=== PATIENT | female | born 1970 | race Caucasian/White ===

== ENCOUNTER 2024-10-02 22:14 | Inpatient (IN) ==
[2024-10-03] MEDS ORDERED: MELATONIN 3 MG TAB PO PRN (02:24)
[2024-10-03] MEDS ORDERED: ONDANSETRON INJ 2 MG/ML 2 ML VIAL IV PRN ×3 (02:24→12:33)
[2024-10-03] MEDS ORDERED: POLYETHYLENE (MIRALAX) 17 GM PACK PO PRN (02:24)
--- NOTE | 2024-10-03 02:31 | History & Physical Report ---
Date of Service October 03, 2024 Assessment & Plan (1) HTN (hypertension): (2) Lumbar pain with radiation down both legs: (3) Costochondritis, acute: (4) Ureteropelvic junction calculus: Plan Chata is a 53-year-old female with past medical history of hypertension, history of cholecystectomy, and lumbar pain with occasional radiation to lower extremities with history of lumbar laminectomy who was transferred from [facility] due to right UPJ calculus and concern for right forniceal rupture with urine leak. (R) UPJ calculus - Right flank pain and 0.5 cm stone in (R) UPJ w/ associated hydroureteronephrosis - Disc with imaging done in ED given to radiology and available in [facility] - Currently pain is well controlled since she got dose of Dilaudid when in ED Could consider dilaudid or morphine for pain control given hx of allergies to percocet, oxycodone, and tramadol - Given one dose of Zosyn in ED, will continue - Will consult urology for possible procedure tomorrow, will appreciate recommendations. Patient currently NPO - Monitor renal function in am labs Chest pain - Central chest pain that radiated to her back - EKG and troponin x1 unremarkable in [facility] - Currently has persistent but more dull central chest pain - Exam and history suggestive of costochondritis - Will get repeat troponin for completeness given initial pain and no repeat was drawn in ED - Does not feel she needs pain medication now, but could consider NSAIDs as management HTN - Continue Lisinopril and Metoprolol Chronic lumbar pain - Continue Gabapentin, Cymbalta, Effexor Dispo: Admit to Med/Surg Fluids: s/p 1L NSS bolus x2 Diet: NPO for possible procedure tomorrow Pain Control: none ordered; could consider dilaudid or morphine; patient allergic to Percocet, Oxycodone, Tramadol VTE ppx: SCD Code Status: FULL CODE Admission and Anticipated Discharge Date Admission Date: October 03, 2024 History of Present Illness Chief Complaint: Right flank pain Primary Care Provider: Roselia Ballesteros MD Chata is a 53-year-old female with past medical history of hypertension, history of cholecystectomy, and lumbar pain with occasional radiation to lower extremities with history of lumbar laminectomy who was transferred from [facility] due to right UPJ calculus and concern for right forniceal rupture with urine leak. Patient presented to [facility] ED after experiencing central chest pain that radiated to her back and down her left arm, had a 10/10 in intensity, and was associated to N/V and diaphoresis. On arrival to ED, EKG was done and unremarkable and troponins were negative x 1. After short while, patient started developing right flank pain that was more noticeable than the chest pain that she had arrived to the ED for. Patient does have history of cholecystectomy. CT done in [facility] did report a right UPJ stone measuring 0.5 cm with associated right hydroureteronephrosis, as well as findings that were concerning for a right forniceal rupture with urine leak. Patient was then transferred to [facility] since Urologist was not available at . At time of arrival, patient denies having any pain in her right flank and is reporting a persistent but more dull ache in the center of her chest that is much more mild than it was at time of onset. Denies having any fevers, chills, weakness, palpitations, SOB, N/V/D, or any other systemic sxs ED Course: Patient given NSS 1L bolus x2, Zosyn IV x 1, Dilaudid for pain control Labs/Imaging (taken at ): CBC with leukocytosis of 12.48 with neutrophilic predominance, hemoglobin of 14.2 and hematocrit of 43.3, platelets of 352. CMP with BUN of 15.9 and creatinine of 1.01. LFTs unremarkable. Troponin < 3 (no repeat). Lipase 53. Chest CT unremarkable. CTAP showing right sided hydroureteronephrosis secondary to 0.5 cm UPJ stone and a right forniceal rupture with urine leak. Medical History: [Reviewed] Medications: [Reviewed] Surgical History: [Reviewed] Family history: [Reviewed] Allergies: [Reviewed] Social History: [Reviewed] Allergies Allergy/AdvReac Type Severity Reaction Status Date / Time acetaminophen [From Percocet] Allergy Severe Anaphylaxis Verified 03/28/24 10:00 oxycodone [From Percocet] Allergy Severe Anaphylaxis Verified 03/28/24 10:00 sumatriptan Allergy Unknown INCREASED Verified 03/28/24 10:00 HEART RATE, CHEST PAIN, NAUSEA tramadol Allergy Severe Anaphylaxis Uncoded 03/28/24 10:00 Home Medications Medication Instructions Recorded Confirmed Type acetaminophen 500 mg tablet 500 mg PO Q6H PRN 11/11/22 03/28/24 History (Tylenol Extra Strength) cyclobenzaprine 10 mg tablet 10 mg PO TID PRN 11/11/22 03/28/24 History ibuprofen 800 mg tablet 800 mg PO Q8H PRN 11/11/22 03/28/24 History lisinopril 10 mg tablet 10 mg PO DAILY 11/11/22 03/28/24 History metoprolol succinate 200 mg 200 mg PO DAILY 11/11/22 03/28/24 History tablet,extended release 24 hr venlafaxine 150 mg 150 mg PO DAILY 11/11/22 03/28/24 History capsule,extended release 24 hr (Effexor XR) duloxetine 60 mg capsule,delayed 60 mg PO HS #90 caps 02/22/23 03/28/24 Rx release (Cymbalta) gabapentin 400 mg capsule 400 mg PO BID 03/28/24 History Past Med/Surg History Problem List (Updated 10/03/24 @ 03:02 by Betty Baker MD) Ureteropelvic junction calculus Costochondritis, acute Lumbar radiculopathy Paresthesia of left lower extremity Failed back surgical syndrome Lumbar post-laminectomy syndrome S/P lumbar fusion L4-5 2007 H/O: hysterectomy Cholecystectomy planned Lumbar pain with radiation down both legs HTN (hypertension) Social History Smoking Status: Never smoker Hx Alcohol Use: No Hx Substance Use: No Preferred Language: Italian Communication Ability: Effective Visual Impairment: No Limitations Hearing Ability: Normal Anesthesiologist/Physician Required: No Beliefs That Will Affect Care: None marital status: Current Living Situation: Spouse current occupational status: employed 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 [employer] Other Information That Helps Us Care for You: No Feels Safe at Home: Yes Safety Concerns: Feels Safe At This Time Assistive Devices: Glasses Review of Systems Review of Systems: As per HPI Physical Exam Physical Exam: GENERAL: Awake alert and oriented in all spheres, afebrile, calm, no acute distress HEAD: Atraumatic, normocephalic EYES: PERRL, EOM intact, noninjected conjunctiva THROAT: Normal to visual inspection CHEST: Symmetric chest expansions with respirations, pain on palpation of sternal region which patient states is the same pain she had been experiencing earlier CARDIO: Regular rate and rhythm, no rubs murmurs or gallops appreciated PULMONARY: Clear to auscultation bilaterally, normal respiratory effort, no respiratory distress GI: Soft, nondistended, nontender SKIN: No rashes Results & Data Results & Data Vital Signs (Past 12 Hours) Vital Signs Temp Pulse Resp BP Pulse Ox O2 Del Method 10/03/24 02:00 36.6 C 86 16 128/67 92 Room Air Supervising Physician Co-Signing Physician Notes Attending addendum: I have physically seen this patient, have supervised the medical residents activities, and agree with the H&P unless as otherwise noted. Assessment and Plan: The patient is a 53-year-old female with a past medical history including lumbar radiculopathy, failed back surgical syndrome, lumbar postlaminectomy syndrome, history of lumbar fusion, hypertension, and depression. She presents to [facility], after we excepted her as a transfer from [facility] emergency department due to concerns regarding a 0.5 cm right UPJ obstructing stone with hydroureteronephrosis, and that facilities unavailability for urologic intervention. #0.5 cm right UPJ obstructing stone, with associated hydro ureteronephrosis- Patient transferred from [facility] emergency department due to unavailability of urology there. Patient has been read to be seen in consult by Dr. Shukla at [facility]. Patient was asked to be given Zosyn 4.5 g IV for transfer, and to receive a total of 2 L normal saline bolus prior to transfer as well. WBC upon transfer was 12.8. Creatinine was 1.01 on transfer with normal el ectrolytes. Will order CBC with differential, chemistry profile, on admission Ordered EKG as not performed NPO except medications Zosyn 4.5 g IV every 8 hours Patient reportedly is allergic to acetaminophen, although it presently is on her outpatient medication list. It will be avoided for now Toradol 10 mg IV every 6 hours as needed for mild pain or fever Dilaudid 0.25 mg IV every 3 hours as needed for moderate to severe pain Pantoprazole 40 mg IV daily Zofran 4 mg IV every 6 hours as needed NSS at 80 mL/h x 1 L Consult urology #Hypertension- Hold lisinopril Decrease metoprolol succinate from 200 to 100 mg p.o. twice daily with hold parameters #Lumbar radiculopathy/lumbar postlaminectomy syndrome/depression- Continue duloxetine, gabapentin, and venlafaxine Resident Activity Tracking Resident Involvement: Resident Care Provided Care Provided: Adult [facility] Medicine
[2024-10-03] MEDS ORDERED: KETOROLAC TROMETHAMINE 15 MG/ML VIAL IV PRN (03:48)
--- NOTE | 2024-10-03 04:03 | Billing Data ---
Date of Service October 03, 2024 Coding Level of Care Code 18181 INT INP/OBS CARE
[2024-10-03] MEDS: SODIUM CHLORIDE 0.9% 1,000 ML IV SCH (04:32)
[2024-10-03] MEDS: TAMSULOSIN HCL 0.4 MG CAP PO ONE (04:32)
[2024-10-03] MEDS: HYDROmorphone INJ 0.5 MG/0.5 ML SYR IV PRN (04:35)
[2024-10-03] MEDS: 4.5GM X1 IV STA ×2 (04:41→08:11)
--- OUTSIDE RECORDS SUMMARY | 2024-10-03 05:56 | External Medical Summary | Summary of Care ---
Author Name Unknown Organization [facility] Address [address] [place] [address] Phone [phone] Care Team Providers Care Ui Software Engineer Name Role Phone Roselia Ballesteros MD Primary Care Provider Encounter Details Date Type Department Care Team (Late st Contact Info) Description 09/02/2024 Patient Reported Data Patient Survey Ortho [facility] Allergies Active Allergy Reactions Criticality Noted Date Comments Sumatriptan Succinate 10/26/2001 nausea and vomiting documented as of this encounter (statuses as of 09/02/2024) Medications MAXALT 10 MG OR TABSIndications:M igraine with aura, intractable take one tab on onset, can take max 30mg in 24 hours, can repeat every 2 hours x 2 6 3 07/14/20 04 Active MULTI-VITAMIN PO TABS One daily Active AMITRIPTYLINE HCL 10 MG PO TABS One at bedtime A ctive MOTRIN 800 MG PO TABSIndications:C hronic cholecystitis 1 by mouth three times a day with food 60 1 12/12/19 10 Active COLESTID 1 GM PO TABSIndications:C hronic diarrhea TAKE ONE TABLET TWICE A DAY, HOLD FOR CONSTIPATION 60 Tab 3 09/09/20 10 Active metFORMIN HCl 500 MG Oral Tablet (Glucophage) TAKE ONE TABLET BY MOUTH TWO TIMES A DAY WITH MEALS 180 Tablet 3 06/29/2023 7:11 PM EDT 02/11/20 23 Active DULoxetine HCl 60 MG Oral Capsule Delayed Release Particles (Cymbalta) TAKE ONE CAPSULE BY MOUTH ONCE DAILY AT BEDTIME FOR 30 DAYS 30 Capsule 2 06/29/20 22 Active Gabapentin 300 MG Oral Capsule (Neurontin) Take one capsule (300mg) by mouth three times a day 270 Capsule 06/25/2023 11:55 AM EDT 06/24/20 23 Active Venlafaxine HCl ER 75 MG Oral Capsule Extended Release 24 Hour (Effexor XR) Take 1 Capsule by mouth daily. 90 Capsule 3 12/02/2023 1:40 PM EDT 08/06/20 23 Active Gabapentin 400 MG Oral Capsule (Neurontin) Take 1 Capsule by mouth 3 times a day. 270 Capsule 2 02/26/2024 9:40 AM EDT 08/23/20 23 Active Lisinopril 10 MG Oral Tablet (Prinivil) Take one tablet by mouth daily 90 Tablet 3 06/20/2024 6:41 PM EDT 12/02/19 24 Active Metoprolol Succinate ER 200 MG Oral Tablet Extended Release 24 Hour TAKE ONE TABLET BY MOUTH EVERY DAY 90 Tablet 3 07/13/2024 12:09 PM EDT 01/17/20 24 Active DULoxetine HCl 60 MG Oral Capsule Delayed Release Particles (Cymbalta) take 1 capsule by mouth daily 90 Capsule 2 07/26/2024 10:30 AM EST 02/01/20 24 Active Venlafaxine HCl ER 150 MG Oral Capsule Extended Release 24 Hour (Effexor XR) take one capsule by mouth daily 90 Capsule 3 08/18/2024 1:20 PM EST 02/22/20 24 Active documented as of this encounter (statuses as of 09/02/2024) Active Problems Problem Noted Date Diagnosed Date Abnormal glandular Papanicolaou smear of cervix 01/14/2004 Female genital symptoms 09/19/2002 Overview (06/21/2017): ICD-10 update of inactive term Peptic ulcer OTHER FORMS OF MIGRAINE WITH OUT MENTION OF INTRACTABLE MIGRAINE INFORMATION Displacement of lumbar inter vertebral disc without myelopathy CLASSICAL MIGRAINE WITH INTRACTABLE MIGRAINE, SO STATED History of peptic ulcer disease Overview (06/21/2017): ICD-10 update of inactive term PRESCRIP-ORAL CONTRACEPT Dysmenorrhea documented as of this encounter (statuses as of 09/02/2024) Resolved Problems Problem Noted Date Diagnosed Date Resolved Date ADVANCE DIRECTIVE INFORMATION 12/11/2009 07/24/2024 Overview (12/11/2009): No, Advance Directive brochure offered , patient declined. documented as of this encounter (statuses as of 09/02/2024) Immunizations Name Administration Dates Next Due COVID-19 mRNA, LNP-s, No Pre serve, 2-Dose Series (Pfizer) 04/22/2021,03/28/2021 PPD 05/08/2015 Seasonal Influenza Vac., MDV , IM, 0.5 mL (Fluzone) 07/25/2015 Seasonal Influenza, PF, 6 M & above, IM , (FluLaval or Fluzone) 08/06/2023,08/06/2022 Seasonal Influenza, Quadriva lent, No Preserve, IM 07/22/2020,2019,08/03/2018 Seasonal Influenza, Trivalen t, (IIV3), PF, (Fluzone) 08/09/2024 documented as of this encounter Social History Tobacco Use Types Packs/Day Years Used Date Smoking Tobacco: Never Alcohol Use Standard Drinks/Week Comments No 0 (1 standard drink = 0.6 oz pur e alcohol) Comments No Sex and Gender Information Value Date Recorded Sex Assigned at Not on file Legal Sex Female 5:26 AM EST Gender Identity Not on file Sexual Orientation Not on file documented as of this encounter Plan of Treatment Upcoming Encounters Date Type Department Care Team (Late st Contact Info) Description 09/05/2024 3:00 PM EST Office Visit [facility] [address] [address] [address], [address] [address] Health Maintenance Due Date Last Done Comments Pneumococcal Vaccine: Pediatrics (0 to 5 Years) and At-Risk Patients (6 to 64 Years) (1 of 2 - PCV) 11/24/1975 Depression Screening 1981 Hepatitis C Screening 11/24/1987 DTap/Tdap Vaccines (1 - Tdap) 1988 Cologuard 2014 Fecal Occult Blood Test 2014 Sigmoidoscopy 2014 Hepatitis B Vaccine (2 of 3 - 19+ 3-dose series) 07/13/2018 06/15/2018 Zoster Vaccines (1 of 2) 11/24/2019 Colonoscopy 09/09/2020 09/09/2010 Colorectal Cancer Screening 09/09/2020 COVID-19 Vaccine ( season) 2024 04/22/2021, 03/28/2021 Lipid Panel 06/14/2024 06/14/2019, 06/14/2019 Mammogram 07/13/2025 07/13/2024, 10/22, 05/25/2017, Additional history exists Pap Smear Discontinued 01/28/2005, 08/20, 04/22/2004, Additional history exists Influenza Vaccine (FLU shot) Completed 08/09/2024, 08/06/2023, 08/06/2022, Additional history exists HPV (Gardasil) Vaccine Aged Out No lo nger eligible based on patient's age to complete this topic MENINGOCOCCAL (MENACTRA/MENVEO) Aged Out No longer eligible based on patient's age to complete this topic documented as of this encounter Medical Devices Not on filedocumented as of this encounter Care Teams Ui Software Engineer Relationship Specialty Start Date End Date Roselia Ballesteros MD [facility] [address] [place] [address] PCP - General Family Medicine 12/01/21 documented as of this encounter
--- OUTSIDE RECORDS SUMMARY | 2024-10-03 05:56 | External Medical Summary | Summary of Care ---
Author Name Unknown Organization [facility] Address [address] [place] [address] Phone [phone] Care Team Providers Care Floors Buffer Name Role Phone Roselia Ballesteros MD Primary Care Provider [phone] Encounter Details Date Type Department Care Team [...] 09/05/2024 3:00 PM EST Office Visit Orthopaedics [facility] [address] [address] [address], [address] [address] Health Maintenance Due Date Last Done Comments [...] filedocumented as of this encounter Care Teams Floors Buffer Relationship Specialty Start Date End Date Roselia Ballesteros MD [facility] [address] [place] [address] PCP - General Family Medicine 12/01/21 documented as of this encounter
--- OUTSIDE RECORDS SUMMARY | 2024-10-03 05:56 | External Medical Summary | Summary of Care ---
Author Name Unknown Organization [facility] Address [address] [place] [address] Phone [phone] Care Team Providers Care Masking Machine Feeder Name Role Phone Roselia Ballesteros MD Primary Care Provider [phone] Encounter Details Date Type Department Care Team (Late st Contact Info) Description 08/28/2024 Patient Reported Data Patient Survey Ortho [facility] Allergies Active Allergy Reactions Criticality Noted Date Comments Sumatriptan Succinate 10/26/2001 nausea and vomiting documented as of this encounter (statuses as of 08/28/2024) Medications MAXALT 10 MG OR TABSIndications:M igraine [...] as of this encounter (statuses as of 08/28/2024) Active Problems Problem Noted Date Diagnosed Date [...] as of this encounter (statuses as of 08/28/2024) Resolved Problems Problem Noted Date Diagnosed Date Resolved Date ADVANCE DIRECTIVE INFORMATION 12/11/2009 07/24/2024 Overview (12/11/2009): No, Advance Directive brochure offered , patient declined. documented as of this encounter (statuses as of 08/28/2024) Immunizations Name Administration Dates Next Due COVID-19 [...] Care Team (Late st Contact Info) Description 09/19/2024 10:00 AM EST Office Visit Orthopaedics [facility] [address] [address] [address], [address] [address] Health Maintenance Due Date Last Done Comments [...] filedocumented as of this encounter Care Teams Masking Machine Feeder Relationship Specialty Start Date End Date Roselia Ballesteros MD [facility] [address] [place] [address] PCP - General Family Medicine 12/01/21 documented as of this encounter
--- OUTSIDE RECORDS SUMMARY | 2024-10-03 05:56 | External Medical Summary | Summary of Care ---
Author Name Unknown Organization [facility] Address [address] [place] [address] Phone [phone] Care Team Providers Care Air Twist Operator Name Role Phone Roselia Ballesteros MD Primary Care Provider Reason for Visit * Reason Comments NEW PATIENT B/L elbows * Evaluate & Treat - Unlimited Visits (Within 3 days (urgent)) - Authorized Specialty Diagnoses / Procedures Referred By Yakelin ye Referred To Contact Orthopaedic Surgery / Orthopedics Diagnoses Lesion of ulnar nerve, bilateral upper limbs Roselia Ballesteros MD [address] [place] [address] Phone: tel: fax: Referral ID Status Reason Start Date Expiration Date Visits Requested Visits Authorized [id number] Authorized Specialty Services Required 08/22/[id number] Encounter Details Date Type Department Care Team (Late st Contact Info) Description 09/05/2024 3:00 PM EST Office Visit Orthopaedics [facility] [address] [place] [address] Jonathan Rodrigez DO [address] [place] [address] Cubital tunnel syndrome on left* Allergies Active Allergy Reactions Criticality Noted Date Comments Sumatriptan Succinate 10/26/2001 nausea and vomiting documented as of this encounter (statuses as of 09/06/2024) Medications MAXALT 10 MG OR TABSIndications:M igraine with aura, intractable take one tab on onset, can take max 30mg in 24 hours, can repeat every 2 hours x 2 6 3 07/14/20 04 Active Additional Information Patient not taking.Reported on 09/05/2024 MULTI-VITAMIN PO TABS One daily Active AMITRIPTYLINE [...] as of this encounter (statuses as of 09/06/2024) Active Problems Problem Noted Date Diagnosed Date [...] as of this encounter (statuses as of 09/06/2024) Resolved Problems Problem Noted Date Diagnosed Date Resolved Date ADVANCE DIRECTIVE INFORMATION 12/11/2009 07/24/2024 Overview (12/11/2009): No, Advance Directive brochure offered , patient declined. documented as of this encounter (statuses as of 09/06/2024) Immunizations Name Administration Dates Next Due COVID-19 mRNA, LNP-s, No Pre serve, 2-Dose Series ([employer]) 04/22/2021,03/28/2021 PPD 05/08/2015 Seasonal Influenza Vac., MDV [...] on file documented as of this encounter Last Filed Vital Signs Vital Sign Reading Time Taken Comments Blood Pressure - - Pulse - - Temperature - - Respiratory Rate - - Oxygen Saturation - - Inhaled Oxygen Concentration - - Weight 99.8 kg (220 lb) 09/05/2024 2:00 PM EST Height 172.7 cm (5' 7.99") 09/05/2024 2:00 PM ES T Body Mass Index 33.46 09/05/2024 2:00 PM EST documented in this encounter Progress Notes * Jonathan Rodrigez, DO - 09/06/2024 6:55 AM EST Patient Name: Chata Matthew CHIEF COMPLAINT: Chief Complaint Patient presents with NEW PATIENT B/L elbows HISTORY OF PRESENT ILLNESS: Chata Matthew is a 53 year old female who presents to clinic today for bilateral upper extremity pain. Patient states that this began approximately 9 months ago. She recently had an EMG through [facility] by Dr. Mateusz Ruelas. She states that she previously seen pain management and do boys for cervical injections with a not have any significant release. She was unable to get an MRI of her cervical spine due to claustrophobia. She denies any known acute traumatic event to her upper extremities or to her neck. She states that the position of her neck does affect her symptoms. Specifically, when she turns her head she states that this is a way for her to experience complete relief from h er symptoms. She states that she has more symptoms in the left than the right with pain in her forearm and inner aspect of her humerus. She was quite tender to palpation throughout. She states she does get some occasional numbness and tingling into her ring finger however states that it was the pain that she was most concerned about in her upper extremities. Past Medical History: Diagnosis Date Abnormal Papanicolaou smear of cervix and cervical HPV leep done for HGSIL Benign neoplasm of colon 09/09/10 normal Displacement of lumbar intervertebral disc without myelopathy 1995 herniated L5-S1 Dysmenorrhea Endometriosis of pelvic peritoneum General counseling for prescription of oral contraceptives INFORMATION ruptured disk, L3 or L4 tx by Dr Lozoya Migraine with aura, intractable since 17 yo Other forms of migraine, without mention of intractable migraine without mention of status migrainosus past [address] [place] [address] Morrison. Peptic ulcer Personal history of peptic ulcer disease Past Surgical History: Procedure Laterality Date ABDOMEN (KUB) 1 VIEW 09/24/01 [facility]--No diagnostic findings. DELIVERY 09/05/1999 Delivery Only COLONOSCOPY W/ BIOPSY (RECTUM) 09/09/[address] ABDOMEN WO IV AND W ORAL CONTRAST 09/24/01 [facility]--There is a normal appearing uterus and adnexa. No urinary tract calculus is identified. CT HEAD/BRAIN WO CONTRAST 05/15/02 [facility]-normal noncontrast CT of the head CT PELVIS WO CONTRAST 09/24/01 [facility]---the liver,spleen, and pancreas are normal as visualized.Gallbladder is partially contracted but grossly normal. The adrenal glands are unremarkable. EGD, FLEXIBLE, DIAGNOSTIC 02/19/04 Dr. Gilmore - gastritis HYSTERCTOMY,SUPRACERVICAL, UTERUS <251G March 2006 [facility] LAPAROSCOPY; CHOLECYSTECTOMY 01/06/10 Lap kodi with lysis of adhesions and exam of right ovary at [facility] - Dr. Gilmore OTHER September 2007 Back surgery, [place] REMOVE CERVIX CONE W/LOOP ELECTRODE Dr. Arriaga REMOVE TONSILS & ADENOIDS, UNDER 12 Social History Socioeconomic History Marital status: Spouse name: Not on file Number of children: Not on file Years of education: Not on file Highest education level: Not on file Occupational History Not on file Tobacco Use Smoking status: Never Smokeless tobacco: Not on file Substance and Sexual Activity Alcohol use: No Drug use: No Sexual activity: Not Currently Other Topics Concern Service Not Asked Blood Transfusions Not Asked Caffeine Concern Not Asked Occupational Exposure Not Asked Hobby Hazards Not Asked Sleep Concern Not Asked Stress Concern Not Asked Weight Concern Not Asked Special Diet Not Asked Back Care Not Asked Exercise Not Asked Bike Helmet Not Asked Seat Belt Not Asked Self-Exams Yes Social History Narrative She is , no children. 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 She does not smoke, use alcohol or use drugs. She walks approx. 3 x wk and drinks minimal mild and eats yogurt approx 3 x wk. Works at [employer] Financial Resource Strain: Not on file Food Insecurity: Not on file Transportation Needs: Not on file Social Connections: Not on file Housing Stability: Not on file The patient denies smoking, drinking, or drug use. Family History Problem Relation Name Age of Onset Arthritis Mother Asthma Mother Renal Hx Father kidney stones, thyroid tumor, West Nile Renal Hx Brother kidney stones Diabetes Grandmother (Maternal) Diabetes Grandmother (Paternal) Heart Disorder Grandmother (Paternal) Denies problems with anesthesia, history of easy bruising or excess bleeding Denies rheumatoid arthritis, lupus Review of patient's allergies indicates: Allergen Reactions Sumatriptan Succinate nausea and vomiting Medications: reviewed Review of systems Constitutional denies recent weight loss, fatigue, fever Eyes denies new blurred vision, double vision Ear/Nose/Throat denies sore throat, runny nose Cardiovascular denies chest pain, new foot swelling Respiratory denies shortness of breath or cough GI denies constipation, diarrhea, abdominal pain denies history of urinary frequency, dysuria, retention Musculoskeletal denies other joint pain except as reference above in history Psychiatric denies depression, substance abuse Integumentary denies new upper extremity rashes, itching Neuro denies other numbness tingling except reference above in history Except as listed above, all other systems were reviewed and documented as per intake PHYSICAL EXAM: Ht 1.727 m (5' 7.99") | Wt 99.8 kg (220 lb) | LMP 01/14/2005 | BMI 33.46 kg/m | BSA 2.19 m Constitutional: Well developed, well nourished, in no acute distress Psychological: normal affect, mood HEENT: normocephalic, atraumatic, anicteric Neck: supple, midline trachea, normal ROM Respiratory: Normal effort, no respiratory distress, no cyanosis Cardiovascular: visible extremities are warm and well perfused Left Upper Extremity: Observation: No significant deformity Tenderness: To light palpation about forearm, humerus, shoulder Neurovascular: Normal motor and sensory exam of the ulnar, radial and median nerves, fingers well perfused with normal capillary refill with decreased but intact sensation to ring finger Swelling/effusions: Minimal swelling of the extremity. Forearm and hand compartments soft, no pain with passive motion of the fingers. Skin: intact, normal color and temperature With the exception of the area of injury, bilateral range of motion, muscle tone, muscle symmetry and coordination are unremarkable. Hand Exam: On gross inspection there is no discoloration of the hand. There is no trophic changes, open wounds, or previous scars. Compared to the contralateral hand there is no thenar or interossei atrophy. There is a normal resting cascade of the fingers. When Chata attempts to make a fist there is no angulation or asymmetry appreciated. Palpable radial pulse Wrist ROM: Flexion: 60 degrees Extension: 60 degrees Radioulnar deviation arc: Approximately 50 degrees IMAGING: EMG performed by Dr. Mateusz Ruelas on 07/13/2024 per his interpretation mild bilateral cubital tunnel syndrome without comment about potential cervical radiculopathy. ASSESSMENT: Chata is a 53 year old female with suspected primary cervical pathology with EMG positive bilateralcubital tunnel syndrome. PLAN: Patient seen and examined in clinic today. I personally reviewed the patient's imaging studies withthe patient during today's visit. Various treatment options were discussed. I discussed with her that I believe her symptoms to be primarily coming from her neck. Discussed with her briefly cubital tunnel release however discussed that this would be unlikely to affect the discomfort up through her p roximal humerus. I discussed with her I would be happy to refer her to 1 of my ultrasound primary care [facility] for potential hydrodissection of her cubital tunnel as well as potentially seek a referral for cervical workup. She would like to weigh her options by discussed with her she was not an operative candidate at this time. Discussed with her I am happy to refer her when she was made a decision should she need to. She will follow up me as needed. Patient expressed understanding and was in agreement with today's treatment plan. There are no Patient Instructions on file for this visit. Jonathan Rodrigez DO Orthopaedics [address] [address] Orthopedic Sports Medicine Surgery 09/05/24 This chart was completed in part utilizing [employer] Speech Voice Recognition Software. Grammatical errors, random word insertions, pronoun errors, and incomplete sentences are an occasional consequence of this system due to software limitations, ambient noise, and hardware issues. Any formal questions or concerns about the content, text, or information contained within the body of this dictation should be directly addressed to the provider for clarification. documented in this encounter Nursing Notes * Elena Lagunas CMA - 09/05/2024 2:55 PM EST Chief Complaint Patient presents with NEW PATIENT B/L elbows Patient is unaccompanied today. B/L elbow pain. States pain is owrse in left. Per pt pain has gotten progressively worse over the last 9 months. Emgs done at [facility]. documented in this encounter Plan of Treatment Scheduled Referrals Name Type Priority Associated Diagnoses Order Schedule ORTHOPAEDICS REFERRAL OP Referral Within 3 days (urgent) Lesion of ulnar nerve, bilateral upper limbs Ordered: 08/22/2024 Health Maintenance Due Date Last Done Comments Pneumococcal Vaccine: Pediatrics (0 to 5 Years) and At-Risk Patients (6 to 64 Years) (1 of 2 - PCV) 11/24/1975 Depression Screening 1981 Hepatitis C Screening 11/24/1987 DTap/Tdap Vaccines (1 - Tdap) 1988 Cologuard 2014 Fecal Occult Blood Test 2014 Sigmoidoscopy 2014 Hepatitis B Vaccine (2 of 3 - 19+ 3-dose series) 07/13/2018 06/15/2018 Colonoscopy 09/09/2020 09/09/2010 Colorectal Cancer Screening 09/09/2020 Zoster Vaccines (2 of 2) 08/05/2022 06/10/2022 COVID-19 Vaccine (3 - season) 2024 04/22/2021, 03/28/2021 Lipid Panel 06/14/2024 06/14/2019, 06/14/2019 Mammogram 07/13/2025 07/13/2024, /10/2021, 05/25/2017, Additional history exists Diabetes Screening 09/08/2026 09/08/2023, 1 11/09/2022, 06/14/2019, Additional history exists Pap Smear Discontinued 01/28/2005, 08/20, 04/22/2004, Additional history exists Influenza Vaccine (FLU shot) Completed 08/09/2024, 08/09/2024, 08/06/2023, Additional history exists HPV (Gardasil) Vaccine Aged Out No lo nger eligible based on patient's age to complete this topic MENINGOCOCCAL (MENACTRA/MENVEO) Aged Out No longer eligible based on patient's age to complete this topic documented as of this encounter Medical Devices Not on filedocumented as of this encounter Visit Diagnoses Diagnosis Cubital tunnel syndrome on left- Primary Lesion of ulnar nerve documented in this encounter Care Teams Air Twist Operator Relationship Specialty Start Date End Date Roselia Ballesteros MD [address] [place] [address] PCP - General Family Medicine 12/01/21 documented as of this encounter
--- OUTSIDE RECORDS SUMMARY | 2024-10-03 05:56 | External Medical Summary | Summary of Care ---
Author Name Unknown Organization [facility] Address [address] [place] [address] Phone [phone] Care Team Providers Care Operations Advisor Name Role Phone Roselia Ballesteros MD Primary Care Provider [phone] Encounter Details Date Type Department Care Team [...] 09/19/2024 10:00 AM EST Office Visit Orthopaedics [facility] [address] [place] [address] Jonathan Rodrigez, [address] [address] Health Maintenance Due Date Last Done Comments [...] filedocumented as of this encounter Care Teams Operations Advisor Relationship Specialty Start Date End Date Roselia Ballesteros MD [facility] [address] [place] [address] PCP - General Family Medicine 12/01/21 documented as of this encounter
--- OUTSIDE RECORDS SUMMARY | 2024-10-03 05:56 | External Medical Summary | Summary of Care ---
Author Name Unknown Organization [facility] Address [address] [place] [address] Phone [phone] Care Team Providers Care Data Processing Manager Name Role Phone Roselia Ballesteros MD Primary Care Provider [phone] Reason for Visit * Reason Comments NEW PATIENT B/L elbows * Evaluate & Treat - Unlimited Visits (Within 3 days (urgent)) - Authorized Specialty Diagnoses / Procedures Referred By Yakelin ye Referred To Contact Orthopaedic Surgery / Orthopedics Diagnoses Lesion of ulnar nerve, bilateral upper limbs Roselia Ballesteros MD [address] [place] [address] Phone: tel: fax: Referral ID Status Reason Start Date Expiration Date Visits Requested Visits Authorized [id number] Authorized Specialty Services Required 08/22/[phone] Encounter Details Date Type Department Care Team (Late st Contact Info) Description 09/05/2024 3:00 PM EST Office Visit Orthopaedics [facility] [address] [place] [address] Jonathan Rodrigez DO [address] [place] [address] Cubital tunnel syndrome on left* Allergies Active Allergy Reactions Criticality Noted Date Comments Sumatriptan Succinate 10/26/2001 nausea and vomiting documented as of this encounter (statuses as of 09/07/2024) Medications MAXALT 10 MG OR TABSIndications:M igraine [...] as of this encounter (statuses as of 09/07/2024) Active Problems Problem Noted Date Diagnosed Date [...] as of this encounter (statuses as of 09/07/2024) Resolved Problems Problem Noted Date Diagnosed Date Resolved Date ADVANCE DIRECTIVE INFORMATION 12/11/2009 07/24/2024 Overview (12/11/2009): No, Advance Directive brochure offered , patient declined. documented as of this encounter (statuses as of 09/07/2024) Immunizations Name Administration Dates Next Due COVID-19 mRNA, LNP-s, No Pre serve, 2-Dose Series ([email or web address]) 04/22/2021,03/28/2021 PPD 05/08/2015,01/16/2002 Seasonal Influenza Vac., MDV , IM, 0.5 [...] ago. She recently had an EMG through [facility] by Dr. Mateusz Ruelas. She states that [...] for her to experience complete relief from he r symptoms. She states that she has more symptoms in the left than the right with pain in her forearm and inner aspect of her humerus. She was quite tender to palpation throughout. She states she does get some occasional numbness and tingling into her ring finger however states that it was the painthat she was most concerned about in her [...] - gastritis HYSTERCTOMY,SUPRACERVICAL, UTERUS <251G March 2006 [facility] LAPAROSCOPY; CHOLECYSTECTOMY 01/06/10 Lap kodi with lysis of adhesions and exam of right ovary at [facility] - Dr. Gilmore OTHER September 2007 Back surgery, [place] REMOVE CERVIX CONE W/LOOP ELECTRODE Dr. Arriaga [...] is , no children. 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 She does not smoke, use alcohol or use drugs. She walks approx. 3 x wk and drinks minimal mild and eats yogurt approx 3 x wk. Works at [employer] Social Needs Financial Resource Strain: Not on file Food [...] for this visit. Jonathan Rodrigez DO Orthopaedics [address] [address] Orthopedic Sports Medicine Surgery 09/05/24 This chart was completed in part utilizing [employer] Speech Voice Recognition Software. Grammatical errors, random [...] the last 9 months. [facility]. documented in this encounter Miscellaneous Notes * Addendum Note - Teddy Gr CMA - 09/07/2024 10:22 AM ESTAddended by: TEDDY GR on: 09/07/2024 10:22 AM Modules accepted: Orders documented in this encounter Plan of Treatment Health Maintenance Due Date Last Done Comments [...] Panel 06/14/2024 06/14/2019, 06/14/2019 Mammogram 07/13/2025 07/13/2024, 02/2 10/2021, 05/25/2017, Additional history exists Diabetes Screening 09/08/2026 [...] nerve documented in this encounter Care Teams Data Processing Manager Relationship Specialty Start Date End Date Roselia Ballesteros MD [address] [place] [address] PCP - General Family Medicine 12/01/21 documented as of this encounter
--- OUTSIDE RECORDS SUMMARY | 2024-10-03 05:56 | External Medical Summary | Summary of Care ---
Author Name Unknown Organization [facility] Address [address] [place] [address] Phone [phone] Care Team Providers Care Oven Baker Name Role Phone Roselia Ballesteros MD Primary Care Provider [phone] Encounter Details Date Type Department Care Team [...] 09/05/2024 3:00 PM EST Office Visit Orthopaedics [facility] [address] [address] Jonathan Rodrigez, [address] [address] Health Maintenance Due Date Last Done Comments [...] filedocumented as of this encounter Care Teams Oven Baker Relationship Specialty Start Date End Date Roselia Ballesteros MD [facility] [address] [place] [address] PCP - General Family Medicine 12/01/21 documented as of this encounter
--- OUTSIDE RECORDS SUMMARY | 2024-10-03 05:56 | External Medical Summary | Summary of Care ---
Author Name Unknown Organization [facility] Address [address] [place] [address] Phone [phone] Care Team Providers Care Back Roller Name Role Phone Roselia Ballesteros MD Primary Care Provider [phone] Encounter Details Date Type Department Care Team [...] 09/05/2024 3:00 PM EST Office Visit Orthopaedics [facility] [address] [address] Jonathan Rodrigez, [address] [address] Health Maintenance Due Date Last Done Comments [...] filedocumented as of this encounter Care Teams Back Roller Relationship Specialty Start Date End Date Roselia Ballesteros MD [facility] [address] [place] [address] PCP - General Family Medicine 12/01/21 documented as of this encounter
--- OUTSIDE RECORDS SUMMARY | 2024-10-03 05:57 | External Medical Summary | Summary of Care ---
Author Name Unknown Organization [facility] Address [address] [place] [address] Phone [phone] Care Team Providers Care Pattern Technician Name Role Phone Roselia Ballesteros MD Primary Care Provider [phone] Encounter Details Date Type Department Care Team [...] [facility] [address] [address] Jonathan Rodrigez, [address] [address] Health Maintenance Due Date Last Done Comments [...] filedocumented as of this encounter Care Teams Pattern Technician Relationship Specialty Start Date End Date Roselia Ballesteros MD [facility] [address] [place] [address] PCP - General Family Medicine 12/01/21 documented as of this encounter
--- OUTSIDE RECORDS SUMMARY | 2024-10-03 05:57 | External Medical Summary | Summary of Care ---
Author Name Unknown Organization [facility] Address [address] [place] [address] Phone [phone] Care Team Providers Care Internet Media Planner Name Role Phone Roselia Ballesteros MD Primary Care Provider [phone] Encounter Details Date Type Department Care Team [...] 09/19/2024 10:00 AM EST Office Visit Orthopaedics [facility] [address] [address] Jonathan Rodrigez, [address] [address] Health Maintenance Due Date Last Done Comments [...] filedocumented as of this encounter Care Teams Internet Media Planner Relationship Specialty Start Date End Date Roselia Ballesteros MD [facility] [address] [place] [address] PCP - General Family Medicine 12/01/21 documented as of this encounter
--- OUTSIDE RECORDS SUMMARY | 2024-10-03 05:57 | External Medical Summary | Continuity of Care Document ---
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 Name Role Phone Elisa Beck Primary Care Physician [phone] [id number] Date(s): 08/16/24 - 08/16/24 [facility] [address] [place] [address], [facility] 1 [place], [place] [phone] Encounter Diagnosis Type 2 diabetes mellitus without complications(Final) - Discharge Disposition: Home or Self Care Attending Physician: MD Ballesteros Amy L Referring Physician: MD Ballesteros Amy L Allergies, Adverse Reactions, Alerts Substance Criticality Severity Reaction Reaction Severity Status Percocet Hives and itching Ac tive Imitrex Tachycardia Active traMADol Hives Active Immunizations Given and Recorded Vaccine Date Status Refusal Reason influenza virus vaccine, inactivated 08/09/24 Kai rded zoster vaccine, inactivated 06/10/22 Given SARS-CoV-2 (COVID-19) mRNA BNT-162b2 vax 1 04/22/21 Recorded SARS-CoV-2 (COVID-19) mRNA BNT-162b2 vax 2 03/28/21 Recorded hepatitis B adult vaccine 3 06/15/18 Recorded hepatitis A adult vaccine 4 06/15/18 Recorded 1Result Comment: 2021-11-21: Historical information-source unspecified 2Result Comment: 2021-11-21: Historical information-source unspecified 3Result Comment: 2021-11-21: Historical information-source unspecified 4Result Comment: 2021-11-21: Historical information-source unspecified Medications Albuterol (Eqv-Ventolin HFA) 90 mcg/inh inhalation aerosol See Instructions, Disp# 18 g, Refills: 1, INHALE 2 PUFFS BY MOUTH EVERY 4 TO 6 HOURS IF NEEDED, Pharmacy: [facility]/pharmacy #[id number] Start Date: 09/14/23 Status: Ordered albuterol 0.083% for nebulization Start: 09/15/23 12:51:00 PM EST, 3 mL, inhaled, q6h, Disp# 25 each, Refills: 1, Note to Pharmacy: Cancel albuterol HFA Rx sent on 09/14/2023, PRN: as needed for wheezing, Pharmacy: [facility]/pharmacy #[id number] Start Date: 09/15/23 Status: Ordered cyclobenzaprine 10 mg oral tablet Start: 11/26/20 3:12:00 PM EST, 1 tab, PO, tid, PRN: as needed for spasm Start Date: 11/26/20 Status: Ordered DULoxetine 60 mg oral delayed release capsule Start: 02/01/24 11:13:00 AM EDT, 1 cap, PO, Daily, Disp# 90 cap, Refills: 2, Pharmacy: [facility] Start Date: 02/01/24 Status: Ordered gabapentin 600 mg oral tablet Start: 12/03/23 2:33:00 PM EDT, 1 tab, PO, tid, Disp# 270 tab, Refills: 2, Pharmacy: [facility] Start Date: 12/03/23 Status: Ordered glucometer Start: 08/16/24 10:23:00 AM EST, See Instructions, Disp# 1 each, Refills: 0, test daily, Dx :E11.9,Pharmacy: [facility]/pharmacy #[id number] Start Date: 08/16/24 Status: Ordered glucose test strips Start: 08/16/24 10:26:00 AM EST, See Instructions, Disp# 100 each, Refills: 3, test daily, Dx: e11.9, Pharmacy: [facility]/pharmacy #[id number] Start Date: 08/16/24 Status: Ordered lancets Start: 08/16/24 10:25:00 AM EST, See Instructions, Disp# 100 each, Refills: 3, tst daily, Dx: E11.9, Pharmacy: [facility]/pharmacy #[id number] Start Date: 08/16/24 Status: Ordered lisinopril 10 mg oral tablet Start: 12/02/23 9:48:00 AM EDT, 1 tab, PO, Daily, Disp# 90 tab, Refills: 3, Pharmacy: [facility] Start Date: 12/02/23 Status: Ordered Metoprolol Succinate ER 200 mg oral tablet, extended release Start: 01/17/24 8:44:00 AM EDT, See Instructions, Disp# 90 tab, Refills: 3, TAKE ONE TABLET BY MOUTHEVERY DAY, Pharmacy: [facility] Start Date: 01/17/24 Status: Ordered venlafaxine 150 mg oral capsule, extended release Start: 02/22/24 10:08:00 AM EDT, 1 cap, PO, Daily, Disp# 90 cap, Refills: 3, Pharmacy: [facility] Start Date: 02/22/24 Status: Ordered Problem List Condition Confirmation Course Effective Dates Status H ealth Status Informant Benign hypertension without congestive heart failure Confirmed Active Chest pain Confirmed Active Cubital tunnel syndrome on left Confirmed Active Cubital tunnel syndrome on right Confirmed Active Left lumbar radiculopathy Confirmed Active Chronic lumbar radiculopathy Confirmed Active Hot flashes, menopausal Confirmed Active Mixed anxiety and depressive disorder Confirmed Active Panic attacks Confirmed Active Failed back syndrome Confirmed Active 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 Sinus tachycardia Confirmed Active Spasm of muscle of lower back Confirmed Active Type 2 diabetes, HbA1c goal < 7% Confirmed Active Symptomatic PVCs Confirmed Active Procedures Procedure Date Related Diagnosis Body Site Status Mammogram 1 11/11/21 Completed Epidural injection of lumbar spine using fluoroscopic guidance 2 08/01/21 Co mpleted Colonoscopy 3 2017 Completed Cholecystectomy 2009 Completed Lumbar spinal fusion 11/2007 Comp leted Lumbar discectomy 09/2007 Complet ed Hysterectomy 2005 Completed Breast biopsy sample 2004 Co mpleted section 1998 Complete d Tonsillectomy and adenoidectomy [address] [place] [address] Impression: 1. No mammographic evidence of malignancy 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
--- OUTSIDE RECORDS SUMMARY | 2024-10-03 05:57 | External Medical Summary | Continuity of Care Document ---
Author Name Unknown Organization [facility] [address] [facility] Address [address] [place] [id number] Care Team Providers Care Supervisor Laboratory Name Role Phone Elisa Beck Primary Care Physician [phone] [id number] Date(s): 08/16/24 - 08/16/24 [facility] [address], [address] [place] [address] [phone] Encounter Diagnosis Mixed anxiety and depressive disorder(Discharge Diagnosis) - 08/15/24 Type 2 diabetes, HbA1c goal < 7%(Discharge Diagnosis) - 08/15/24 Benign hypertension without congestive heart failure(Discharge Diagnosis) - 08/15/24 Failed back syndrome(Discharge Diagnosis) - 08/15/24 Cubital tunnel syndrome, bilateral(Discharge Diagnosis) - 08/16/24 Chronic lumbar radiculopathy(Discharge Diagnosis) - 08/16/24 Neuropathy of right peroneal nerve(Discharge Diagnosis) - 08/16/24 Chest pain(Discharge Diagnosis) - 08/16/24 Physical exam(Discharge Diagnosis) - 08/15/24 Discharge Disposition: Home or Self Care Attending Physician: CARMEN Beck Jessica A Allergies, Adverse Reactions, Alerts Substance Criticality Severity Reaction Reaction Severity Status Percocet Hives and itching Ac tive Imitrex Tachycardia Active traMADol Hives Active Assessment and Plan Extracted from: Title:Office Visit Note Author:MD Favian, Roselia Ruiz ate:08/16/24 1.Physical exam Normal exam, healthy lifestyle. ReviewedCMP & lipids from 02/10. Up to date mammography.Discussed need for coloncancerscreening& discussedage-appropriate vaccines. 2.Chest pain STATUS : chronic, unchanged. DATA : hx & exam reviewed. GOAL : eval &tx causeofpain. PLAN : she has had chestheavinessfor over 6-7 years, noprogression.Itdoescoincidewithexertion&stress, accompaniedbysweating& SOB.Shehadsometypeof stresstestperhaps 5-6 yearsago, whichwas negative. We discussedfactthat even thoughpreviousworkup wasnegative& sx havenotprogressed, sheshould likelyhave stressECHOdonenow. Thereare several ofherotherproblems forwhich surgerymaybe offered, so wouldalsoadvise workupfor thisreason.Sheagrees&, therefore,stressECHOwasordered. 3.Type 2 diabetes, HbA1c goal < 7% Status : chronic, controlled. Data : diet reviewed. Goal : maintain normal blood sugars. Plan : reviewedlastglucose, A1C of 6.2%, & urine microalbumin done in 02/10. Will recheck A1C. Continue same meds, pending labs. 4.Chronic lumbar radiculopathy STATUS: chronic,stable. DATA: hx & exam reviewed. GOAL: resolve pain. PLAN: discussed resultsofEMG,& options of oral meds, vs PT/chiropractic, vs invasive tx (ie injections, surgery).She issatisfiedwith hercurrent painmanagement specialist. She has had multiple procedures done & evaluations for many other modalities in the past, that did not prove effective, or were felt to be too high risk. She does not want pain meds, willcontinue with OTC NSAID's. 5.Cubital tunnel syndrome, bilateral STATUS: Chronic, worse. DATA: hx& EMG reportreviewed. GOAL: relievesx, improvefunction. PL AN: reviewed findings of EMG. [facility]. 6.Neuropathy of right peroneal nerve STATUS: new problem,stable. DATA: Hx&EMGreviewed. GOAL: relievesx,improvefunction. PLAN: she feelsthatthis isduetositting withherright legunder her,totake pressureoffof herleft buttock/leg.Thisis plausible, soshewill modifyher habits, to see ifthishelps. 7.Mixed anxiety and depressive disorder Status : chronic, improved. Data : hx reviewed. Goal : achieve& maintain remission. Plan : continue same doses of meds. 8.Benign hypertension without congestive heart failure Status : chronic, controlled. Data : BP readings reviewed. Goal : maintain normal BP. Plan : continue current BPmeds. Lastelectrolytes & renal function were all normal in 02/10. 9.Failed back syndrome As above. Return in 6 months, if A1C 7% or less. TOTAL TIME for CPE: (Preparation, record review face to face time with patient, and note completion): 13 A preventive health CPE was completed during this visit in addition to an E & M visit. The CPE included a review of the PMH, PSH, FHx, Social History, medication review (and refills if needed), review of specialty consults/ visits, review of ED visits if applicable, past and current lab/ imaging results, and completing the portion of the note to document the CPE. TOTAL TIME FOR E & M: (Preparation, record review, face to face time with patient, and note completion): 28 An E& M visit was also completed during this visit to address acute and/or chronic patient concerns. See above ASSESSMENT and PLAN. Evaluation consisted of review of prior visits to assess past management, medication review and response to problems addressed, review of prior specialty consultation for these issues, review of ED visits if applicable, past and current labs and imaging that relate to these concerns and documentation of this visit. Immunizations Given and Recorded Vaccine Date Status [...] 4 TO 6 HOURS IF NEEDED, Pharmacy: [facility]/pharmacy #[id number] Start Date: 09/14/23 Status: Ordered albuterol 0.083% for nebulization Start: 09/15/23 12:51:00 PM EST, 3 mL, inhaled, q6h, Disp# 25 each, Refills: 1, Note to Pharmacy: Cancel albuterol HFA Rx sent on 09/14/2023, PRN: as needed for wheezing, Pharmacy: [facility]/pharmacy #[id number] Start Date: 09/15/23 Status: Ordered cyclobenzaprine 10 mg oral tablet Start: 11/26/20 3:12:00 PM EST, 1 tab, PO, tid, PRN: as needed for spasm Start Date: 11/26/20 Status: Ordered DULoxetine 60 mg oral delayed release capsule Start: 02/01/24 11:13:00 AM EDT, 1 cap, PO, Daily, Disp# 90 cap, Refills: 2, Pharmacy: [facility] Start Date: 02/01/24 Status: Ordered gabapentin 600 mg oral tablet Start: 12/03/23 2:33:00 PM EDT, 1 tab, PO, tid, Disp# 270 tab, Refills: 2, Pharmacy: [facility] Start Date: 12/03/23 Status: Ordered glucometer Start: 08/16/24 10:23:00 AM EST, See Instructions, Disp# 1 each, Refills: 0, test daily, Dx :E11.9,Pharmacy: [facility]/pharmacy #[id number] Start Date: 08/16/24 Status: Ordered glucose test strips Start: 08/16/24 10:26:00 AM EST, See Instructions, Disp# 100 each, Refills: 3, test daily, Dx: e11.9, Pharmacy: [facility]/pharmacy #[id number] Start Date: 08/16/24 Status: Ordered lancets Start: 08/16/24 10:25:00 AM EST, See Instructions, Disp# 100 each, Refills: 3, tst daily, Dx: E11.9, Pharmacy: [facility]/pharmacy #[id number] Start Date: 08/16/24 Status: Ordered lisinopril 10 mg oral tablet Start: 12/02/23 9:48:00 AM EDT, 1 tab, PO, Daily, Disp# 90 tab, Refills: 3, Pharmacy: [facility] Start Date: 12/02/23 Status: Ordered Metoprolol Succinate ER 200 mg oral tablet, extended release Start: 01/17/24 8:44:00 AM EDT, See Instructions, Disp# 90 tab, Refills: 3, TAKE ONE TABLET BY MOUTHEVERY DAY, Pharmacy: [facility] Start Date: 01/17/24 Status: Ordered venlafaxine 150 mg oral capsule, extended release Start: 02/22/24 10:08:00 AM EDT, 1 cap, PO, Daily, Disp# 90 cap, Refills: 3, Pharmacy: [facility] Start Date: 02/22/24 Status: Ordered Mental Status 08/16/24 Barriers to Learning one year None evide nt Mandatory Health Literacy Documentation Yes Health Literacy Communication Barriers N ever Primary Language Brazilian Problem List Condition Confirmation Course Effective Dates [...] 7% Confirmed Active Symptomatic PVCs Confirmed Active Diagnosis Diagnosis Type Effective Dates Health Status Clinical Service Informant Type 2 diabetes, HbA1c goal < 7% Discharge Diagnosis 08/15/24 Non-Specified Mixed anxiety and depressive disorder Discharge Diagnosis 08/15/24 Non-Specified Physical exam Discharge Diagnosis 08/15/24 Non-Specified Benign hypertension without congestive heart failure Discharge Diagnosis 08/15/24 Non-Specified Failed back syndrome Discharge Diagnosis 08/15/24 Non-Specified Cubital tunnel syndrome, bilateral Discharge Diagnosis 08/16/24 Non-Specified Chronic lumbar radiculopathy Discharge Diagnosis 08/16/24 Non-Specified Neuropathy of right peroneal nerve Discharge Diagnosis 08/16/24 Non-Specified Chest pain Discharge Diagnosis 08/16/24 Non-Specified Procedures Procedure Date Related Diagnosis Body Site Status Mammogram 1 11/11/21 Completed Epidural injection of lumbar spine using fluoroscopic guidance 2 08/01/21 Co mpleted Colonoscopy 3 2017 Completed Cholecystectomy 2009 Completed Lumbar spinal fusion 11/2007 Comp leted Lumbar discectomy 09/2007 Complet ed Hysterectomy 2005 Completed Breast biopsy sample 4 2004 Co mpleted section 1998 Complete d Tonsillectomy and adenoidectomy [address] [place] [address] Impression: 1. [facility]next [facility] 2022 polyps 4Left Vital Signs Most recent to oldest [Reference Range]: 1 Patient Weight 100.6 kg (08/16/24 10:01 AM) Temperature [36.5-37.9 DegC] 36.6 DegC (08/16/24 10:01 AM) Heart Rate 68 bpm (08/16/24 10:01 AM) Respiratory Rate 16 br/min (08/16/24 10:01 AM) Blood Pressure 134/84mmHg (08/16/24 10:01 AM) Cuff Pulse Pressure 50 mmHg (08/16/24 10:01 AM) BP Location # 1 Left Arm, Manual (08/16/24 10:01 AM) Social History Social History Type Response Smoking Status Never smoked cigaret frank Sex Female Sex Representation Female (finding) FCM Outpt Note * MD Favian, Roselia Lord: PERFORM Event Display: FCM Outpt Note Authored Date: Chief Complaint Physical exam History of Present Illness CPE: Here for a health maintenance complete physical exam and lab review SEPARATE PROBLEMS IN ADDITION TO HEALTH MAINTENANCE: Also presents to address NEW or CHRONIC medical issues. NEW CONCERNS(s): 1) Type 2 DM- she has not done glucometers.No feelings of low BS. Metformin caused so much nausea, that she could not tolerate it. 2) Back pain -she has had multiple surgeries done for her back problemsin past.She hasresistantpain, seeingpainmanagementfor injections. These help a little bit, but only for short periods. CHRONIC PROBLEMS FOLLOW UP: See list detailed in the Assessment and Plan. CC: No acute complaints at this time. HOSPITALIZATIONS: No hospitalizations in the last 12 months or severe acute injuries not accounted for in chart. DENTAL: Routine dental care every 6 months, without complaint EYE: Routine eye care yearly, without issue presently PSFSHx: Histories updated and reviewed with patient with changes reflected. SAFETY: Feeling safe at home and in relationships without concern. MAMMOGRAM: last one 07/13, reviewed with pt. LAST PAP :S/P hyster COLONOSCOPY: Reviewed last COLO 2017 and need for next COLO: 2022 IMMUNIZATIONS: Reviewed in EHR. Immunizations that are due: shingles, tetanus Review of Systems Review of Systems- Constitutional: no fatigue or changes in weight. HEENT: no vision changes, or sinus congestion. Respiratory: no cough, SOB, or wheezing. Cardiac: no chest pain, palpitations or pedal edema. GI: no abdominal pain, vomiting or change in bowel habits. : no dysuria. Neurologic: no headaches. Musculoskeletal: No joint pains. Physical Exam Vitals & Measurements T:36.6C HR:68(Monitored) RR:16 BP:134/84 SpO2:98% WT:100.600kg(Dosing) WT:100.6kg PHQ2 Data(Data Documented on:08/16/2024 10:01) Emotional health assessment NEGATIVE PE : Alert, in NAD. HEENT - PERRL. TM's - normal. Nares - clear. Oropharynx - normal. Neck - supple, without thyromegaly or lymphadenopathy. Lungs - clear, with good breath sounds bilaterally. Heart - RRR without murmur. No pedal edema. Abdomen - +BS, soft, NT without HSM or mass. Neuro - alert & oriented, speech & cognition normal. Skin - warm & dry. Psych - affect appropriate. Assessment/Plan 1.Physical exam Normal exam, healthy lifestyle. ReviewedCMP & lipids from 02/10. Up to date mammography.Discussed need for coloncancerscreening& discussedage- appropriate vaccines. 2.Chest pain STATUS : chronic, unchanged. DATA : hx & exam reviewed. GOAL : eval &tx causeofpain. PLAN : she has had chestheavinessfor over 6-7 years, noprogression.Itdoescoincidewithexertion&stress, accompaniedbysweating& SOB.Shehadsometypeof stress testperhaps 5-6 yearsago, whichwas negative. We discussedfactthat even thoughpreviousworkup wasnegative& sx havenotprogressed, sheshould likelyhave stressECHOdonenow. Thereare several ofherotherproblems forwhich surgerymaybe offered, so would alsoadvise workupfor thisreason.Sheagrees&, therefore,stressECHOwasordered. 3.Type 2 diabetes, HbA1c goal < 7% Status : chronic, controlled. Data : diet reviewed. Goal : maintain normal blood sugars. Plan : reviewedlastglucose, A1C of 6.2%, & urine microalbumin done in 02/10. Will recheck A1C. Continue same meds, pending labs. 4.Chronic lumbar radiculopathy STATUS: chronic,stable. DATA: hx & exam reviewed. GOAL: resolve pain. PLAN: discussed resultsofEMG,& options of oral meds, vs PT/chiropractic, vs invasive tx (ie injections, surgery).She issatisfiedwith hercurrent painmanagement specialist. She has had multiple procedures done & evaluations for many other modalities in the past, that did notprove effective, or were felt to be too high risk. She does not want pain meds, willcontinue with OTC NSAID's. 5.Cubital tunnel syndrome, bilateral STATUS: Chronic, worse. DATA: hx& EMG reportreviewed. GOAL: relievesx, improvefunction. PLAN: reviewed findings of EMG. [facility]. 6.Neuropathy of right peroneal nerve STATUS: new problem,stable. DATA: Hx&EMGreviewed. GOAL: relievesx,improvefunction. PLAN: she feelsthatthis isduetositting withherright legunder her,totake pressureoffof herleft buttock/leg.Thisis plausible, soshewill modifyher habits, to see ifthishelps. 7.Mixed anxiety and depressive disorder Status : chronic, improved. Data : hx reviewed. Goal : achieve& maintain remission. Plan : continue same doses of meds. 8.Benign hypertension without congestive heart failure Status : chronic, controlled. Data : BP readings reviewed. Goal : maintain normal BP. Plan : continue current BPmeds. Lastelectrolytes & renal function were all normal in 02/10. 9.Failed back syndrome As above. Return in 6 months, if A1C 7% or less. TOTAL TIME for CPE: (Preparation, record review face to face time with patient, and note completion): 13 A preventive health CPE was completed during this visit in addition to an E & M visit. The CPE included a review of the PMH, PSH, FHx, Social History, medication review (and refills if needed), review of specialty consults/ visits, review of ED visits if applicable, past and current lab/ imaging results, and completing the portion of the note to document the CPE. TOTAL TIME FOR E & M: (Preparation, record review, face to face time with patient, and note completion): 28 An E& M visit was also completed during this visit to address acute and/or chronic patient concerns. See above ASSESSMENT and PLAN. Evaluation consisted of review of prior visits to assess past management, medication review and response to problems addressed, review of prior specialty consultation for these issues, review of ED visits if applicable, past and current labs and imaging that relate to these concerns and documentation of this visit. Problem List/Past Medical History Ongoing Benign hypertension without congestive heart failure Chest pain Chronic lumbar radiculopathy Cubital tunnel syndrome on left Cubital tunnel syndrome on right Failed back syndrome Hot flashes, menopausal Left lumbar radiculopathy Mixed anxiety and depressive disorder Neuropathy of right peroneal nerve Panic attacks Right peroneal mononeuropathy Sinus tachycardia Spasm of muscle of lower back Symptomatic PVCs Type 2 diabetes, HbA1c goal < 7% Procedure/Surgical History Mammogram| Service Date: 11/11/2021Epidural injection of lumbar spine using fluoroscopic guidance| Service Date: 08/01/2021olonoscopy| Service Date: 2017Cholecystectomy| Service Date: 2009Lumbar spinal fusion| Service Date: 11/2007Lumbar discectomy| Service Date: 09/2007Hysterectomy| Service Date: 2005Breast biopsy sample| Service Date: 2004Cesarean section| Service Date: 1998Tonsillectomy and adenoidectomy| Service Date: 1987 Medications albuterol(Albuterol (Eqv-Ventolin HFA) 90 mcg/inh inhalation aerosol), See Instructions, 1 refills albuterol(albuterol 0.083% for nebulization), 2.5 mg= 3 mL, inhaled, q6h, PRN, 1 refills cyclobenzaprine(cyclobenzaprine 10 mg oral tablet), 10 mg= 1 tab, PO, tid, PRN diabetes supplies(lancets), See Instructions, 3 refills diabetes supplies(glucometer), See Instructions diabetes supplies(glucose test strips), See Instructions, 3 refills DULoxetine(DULoxetine 60 mg oral delayed release capsule), 60 mg= 1 cap, PO, Daily, 2 refills gabapentin(gabapentin 600 mg oral tablet), 600 mg= 1 tab, PO, tid, 2 refills lisinopril(lisinopril 10 mg oral tablet), 10 mg= 1 tab, PO, Daily, 3 refills metoprolol(Metoprolol Succinate ER 200 mg oral tablet, extended release), See Instructions, 3 refills venlafaxine(venlafaxine 150 mg oral capsule, extended release), 150 mg= 1 cap, PO, Daily, 3 refills Allergies ImitrexTachycardia PercocetHives and itching traMADolHives Social History Smoking Status Never smoked cigarettes Alcohol - Denies Alcohol Use Employment/School Status:Employed Description:[employer] Plan Exercise Duration (average number of minutes):30 Times per week:3-4 times/week Exercise type:Walking Nutrition/Health Type of diet:Regular Caffeine intake amount:Drinks 2 glasses of iced tea/day Sexual Sexually active:Yes Self described orientation:Straight or heterosexual Substance Abuse - Denies Substance Abuse Tobacco - Denies Tobacco Use Family History Cancer: Father and MGF. Glaucoma: Father and MGF. Heart attack: PGM. Hypertension: Mother and Brother. Respiratory disease: Mother. Stroke: MGM. Type II diabetes mellitus: MGM and PGM. Health Status Family Member(s) Immunizations Vaccine Date Status influenza virus vaccine, inactivated 08/09/2024 Recorded zoster vaccine, inactivated 06/10/2022 Given SARS-CoV-2 (COVID-19) mRNA BNT-162b2 vax 04/22/2021 Recorded Comments : 2021-11-21: Historical information-source unspecified SARS-CoV-2 (COVID-19) mRNA BNT-162b2 vax 03/28/2021 Recorded Comments : 2021-11-21: Historical information-source unspecified hepatitis B adult vaccine 06/15/2018 Recorded Comments : 2021-11-21: Historical information-source unspecified hepatitis A adult vaccine 06/15/2018 Recorded Comments : 2021-11-21: Historical information-source unspecified Recommendations Health Maintenance Pending(in the next year) OverDue Breast Cancer Screening due11/12/23and every 731day Body Mass Index due02/04/24and every 366day Due Adult COVID-19 Vaccination due08/16/24Unknown Frequency Adult Social Determinants of Health Screening due08/16/24Unknown Frequency Adult Tdap/Td Vaccine due08/16/24Unknown Frequency Hepatitis C Screening due08/16/24One-time only Pneumococcal Vaccine Adults and Adolescents with Chronic Illness due08/16/24One-time only Shingles Vaccine due08/16/24One-time only Due In Future Adult Influenza Vaccine not due until03/19/25and every 1year Satisfied(in the past 1 year) Satisfied Adult Influenza Vaccine on08/09/24.Satisfied by MD Favian, Roselia Lord Diabetes Management A1c on08/16/24.Satisfied by Contributor_system, [employer] Diabetes Nephropathy Management on01/25/24.Satisfied by Contributor[employer]system, [employer] Diabetic Eye Exam on12/03/23.Satisfied by FLORINA Mark Karli R Lipid Screening on01/25/24.Satisfied by Contributor[employer]system, [employer] Electronic Signature on File Electronically Reviewed/Signed by: Roselia Ballesteros MD Author Signature Dt/Tm:08/16/2024 11:59 AM Human Resources Team Member [facility] [address], [facility] [address] [place] [address] [facility] Patient Care team information Care Team Personnel Name: CARMEN Beck, Elisa Cisneros Position: Physician Asst Exmpt - Family Med Member Role: Primary Care Provider Address: [address] [place] [address] [address] [place] [address] [place] Care Team Related Persons Name: JOSE LUIS REYES"
--- OUTSIDE RECORDS SUMMARY | 2024-10-03 05:57 | External Medical Summary | Summary of Care ---
Author Name Unknown Organization [facility] Address [address] [place] [address] Phone [phone] Care Team Providers Care Hand Sander Name Role Phone Roselia Ballesteros MD Primary Care Provider [phone] Encounter Details Date Type Department Care Team [...] 09/19/2024 10:00 AM EST Office Visit Orthopaedics [facility] [address] [place] [address] Jonathan Rodrigez, [address] [place] [address] Health Maintenance Due Date Last Done Comments [...] filedocumented as of this encounter Care Teams Hand Sander Relationship Specialty Start Date End Date Roselia Ballesteros MD [facility] [address] [place] [address] PCP - General Family Medicine 12/01/21 documented as of this encounter
--- OUTSIDE RECORDS SUMMARY | 2024-10-03 05:57 | External Medical Summary | Summary of Care ---
Author Name Unknown Organization [facility] Address [address] [place] [address] Phone [phone] Care Team Providers Care Polymer Tester Name Role Phone Roselia Ballesteros MD Primary Care Provider [phone] Encounter Details Date Type Department Care Team (Late st Contact Info) Description 05/29/2024 Orders Only Outcomes Research Department [address], [place] [id number] Yadira Austin CHRA [employer] Other*[id number] Allergies Active Allergy Reactions Criticality Noted Date Comments Sumatriptan Succinate 10/26/2001 nausea and vomiting documented as of this encounter (statuses as of 05/29/2024) Medications Medication Sig Dispensed Refills Start Date End Date Status MAXALT 10 MG OR TABSIndications:Kevin keshia with aura, intractable take one tab on onset, can take max 30mg in 24 hours, can repeat every 2 hours x 2 6 3 07/14/2004 Active MULTI-VITAMIN PO TABS One daily Active AMITRIPTYLINE HCL 10 MG PO TABS One at bedtime Active MOTRIN 800 MG PO TABSIndications:Chr onic cholecystitis 1 by mouth three times a day with food 60 1 12/11/2009 Active COLESTID 1 GM PO TABSIndications:Chr onic diarrhea TAKE ONE TABLET TWICE A DAY, HOLD FOR CONSTIPATION 60 Tab 3 09/09/2010 Active metFORMIN HCl 500 MG Oral Tablet (Glucophage) TAKE ONE TABLET BY MOUTH TWO TIMES A DAY WITH MEALS 180 Tablet 3 02/10/2023 Active DULoxetine HCl 60 MG Oral Capsule Delayed Release Particles (Cymbalta) TAKE ONE CAPSULE BY MOUTH ONCE DAILY AT BEDTIME FOR 30 DAYS 30 Capsule 2 06/29/2022 Active Gabapentin 300 MG Oral Capsule (Neurontin) Take one capsule (300mg) by mouth three times a day 270 Capsule 06/24/2023 Active Venlafaxine HCl ER 75 MG Oral Capsule Extended Release 24 Hour (Effexor XR) Take 1 Capsule by mouth daily. 90 Capsule 3 08/06/2023 Active Gabapentin 400 MG Oral Capsule (Neurontin) Take 1 Capsule by mouth 3 times a day. 270 Capsule 2 08/23/2023 Active Lisinopril 10 MG Oral Tablet (Prinivil) Take one tablet by mouth daily 90 Tablet 3 12/02/2023 Active Metoprolol Succinate ER 200 MG Oral Tablet Extended Release 24 Hour TAKE ONE TABLET BY MOUTH EVERY DAY 90 Tablet 3 01/17/2024 Active DULoxetine HCl 60 MG Oral Capsule Delayed Release Particles (Cymbalta) take 1 capsule by mouth daily 90 Capsule 2 02/01/2024 Active Venlafaxine HCl ER 150 MG Oral Capsule Extended Release 24 Hour (Effexor XR) take one capsule by mouth daily 90 Capsule 3 02/22/2024 Active documented as of this encounter (statuses as of 05/29/2024) Active Problems Problem Noted Date Diagnosed Date ADVANCE DIRECTIVE INFORMATION 12/11/2009 Overview: No, Advance Directive brochure offered , patient declined. Abnormal glandular Papanicolaou smear of cervix 01/14/2004 Female genital symptoms 09/19/2002 Overview: ICD-10 update of inactive term Peptic ulcer OTHER FORMS OF MIGRAINE WITH OUT MENTION OF INTRACTABLE MIGRAINE INFORMATION Displacement of lumbar inter vertebral disc without myelopathy CLASSICAL MIGRAINE WITH INTRACTABLE MIGRAINE, SO STATED History of peptic ulcer disease Overview: ICD-10 update of inactive term PRESCRIP-ORAL CONTRACEPT Dysmenorrhea documented as of this encounter (statuses as of 05/29/2024) Immunizations Name Administration Dates Next Due COVID-19 mRNA, LNP-s, No Pre serve, 2-Dose Series ([employer]) 04/22/2021,03/28/2021 PPD 05/08/2015 Seasonal Influenza, PF, 6 M & above, IM , (FluLaval or Fluzone) 08/06/2023,08/06/2022 Seasonal Influenza, Quadriva lent, No Preserve, IM 07/22/2020,2019,08/03/2018 Seasonal Influenza, Trivalen t, (IIV3), with Preserv, (Fluzone) 07/25/2015 documented as of this encounter Social History Tobacco Use Types Packs/Day Years Used Date Smoking Tobacco: Never Alcohol Use Standard Drinks/Week Comments No 0 (1 standard drink = 0.6 oz pur e alcohol) Sex and Gender Information Value Date Recorded Sex Assigned at Not on file Gender Identity Not on file Sexual Orientation Not on file Job Start Date Occupation Industry Not on file Not on file Not on file documented as of this encounter Plan of Treatment Scheduled Orders Name Type Priority Associated Diagnoses Orde r Schedule MYCODE INITIAL ADULT Lab Routine [employer] Other*[id number] Expected: 05/29/2024 (Approximate), Expires: 06/18/2025 Health Maintenance Due Date Last Done Comments [...] Colonoscopy 09/09/2020 09/09/2010 Colorectal Cancer Screening 09/09/2020 Mammogram 11/11/2022 11/11/2021, 05/25/2017 COVID-19 Vaccine (3 - 2022- season) 2024 04/22/2021, 03/28/2021 Influenza Vaccine (FLU shot) (#1) 2024 08/06/2023, 08/06/2022, 07/22/2020, Additional history exists Lipid Panel 06/14/2024 06/14/2019, 06/14/2019 Pap Smear Discontinued 01/28/2005, 08/20, 04/22/2004, Additional history exists HPV (Gardasil) Vaccine Aged Out No lo nger eligible based on patient's age to complete this topic MENINGOCOCCAL (MENACTRA/MENVEO) Aged Out No longer eligible based on patient's age to complete this topic documented as of this encounter Medical Devices Not on filedocumented as of this encounter Visit Diagnoses Diagnosis [employer] Other*[id number] documented in this encounter Care Teams Polymer Tester Relationship Specialty Start Date End Date Roselia Ballesteros MD [address] [place] [id number] PCP - General Family Medicine 12/01/21 documented as of this encounter
--- OUTSIDE RECORDS SUMMARY | 2024-10-03 05:57 | External Medical Summary | Summary of Care ---
Author Name Unknown Organization [facility] Address [address] [place] [address] Phone [phone] Care Team Providers Care Bleach Chlorinator Name Role Phone Roselia Ballesteros MD Primary Care Provider [phone] Reason for Referral * Evaluate & Treat - Unlimited Visits (Within 3 days (urgent)) - Authorized Specialty Diagnoses / Procedures Referred By Yakelin ye Referred To Contact Orthopaedic Surgery / Orthopedics Diagnoses Lesion of ulnar nerve, bilateral upper limbs Roselia Ballesteros MD [address] [place] [phone] Phone: tel: fax: Referral ID Status Reason Start Date Expiration Date Visits Requested Visits Authorized [id number] Authorized Specialty Services Required 08/22/[phone] Question Answer Referral Priority Within 3 days (urgent) Where should this appointment be scheduled? [facility] What body part is the patient being seen for? Arm/Elbow What condition is the patient being seen for? Sprain/Strain/Tear/Other Comments Lesion of ulnar nerve, b/L upper limbs Bilat cubital tunnel Encounter Details Date Type Department Care Team (Late st Contact Info) Description 08/22/2024 Orders Only Access [place], [address] Ext *DO NOT REMOVE THIS DEPARTMENT* [place] [address] Request, External Referral Lesion of ulnar nerve, bilateral upper limbs* Allergies Active Allergy Reactions Criticality Noted Date Comments Sumatriptan Succinate 10/26/2001 nausea and vomiting documented as of this encounter (statuses as of 08/22/2024) Medications MAXALT 10 MG OR TABSIndications:M igraine [...] as of this encounter (statuses as of 08/22/2024) Active Problems Problem Noted Date Diagnosed Date [...] as of this encounter (statuses as of 08/22/2024) Resolved Problems Problem Noted Date Diagnosed Date Resolved Date ADVANCE DIRECTIVE INFORMATION 12/11/2009 07/24/2024 Overview (12/11/2009): No, Advance Directive brochure offered , patient declined. documented as of this encounter (statuses as of 08/22/2024) Immunizations Name Administration Dates Next Due COVID-19 mRNA, LNP-s, No Pre serve, 2-Dose Series ([employer]) 04/22/2021,03/28/2021 PPD 05/08/2015 Seasonal Influenza Vac., MDV [...] of this encounter Plan of Treatment Scheduled Referrals [...] as of this encounter Visit Diagnoses Diagnosis Lesion of ulnar nerve, bilateral upper limbs- Primary documented in this encounter Care Teams Bleach Chlorinator Relationship Specialty Start Date End Date Roselia Ballesteros MD [address] [place] [address] PCP - General Family Medicine 12/01/21 documented as of this encounter
--- OUTSIDE RECORDS SUMMARY | 2024-10-03 05:57 | External Medical Summary | Continuity of Care Document ---
Author Name Unknown Organization [facility] [address] [place] [place] [id number] Address [address] [place] [id number] Care Team Providers Care Deodorizer Operator Name Role Phone Elisa Beck Primary Care Physician [phone] [id number] Date(s): 07/13/24 - 07/13/24 [facility] [address] [facility] [address] [address] [place] [address] Encounter Diagnosis Left lumbar radiculopathy(Discharge Diagnosis) - 07/13/24 Right peroneal mononeuropathy(Discharge Diagnosis) - 07/13/24 Cubital tunnel syndrome on left(Discharge Diagnosis) - 07/13/24 Cubital tunnel syndrome on right(Discharge Diagnosis) - 07/13/24 Discharge Disposition: Home or Self Care Attending Physician: MD Suraj, Mateusz Diaz Referring Physician: CARMEN Beck Jessica A Allergies, Adverse Reactions, Alerts Substance Criticality Severity Reaction Reaction Severity Status Percocet Hives and itching Ac tive Imitrex Tachycardia Active traMADol Hives Active Immunizations Given and Recorded Vaccine Date Status Refusal Reason zoster vaccine, inactivated 06/10/22 Given SARS-CoV-2 (COVID-19) [...] 4 TO 6 HOURS IF NEEDED, Pharmacy: [facility]/pharmacy #[id number] Start Date: 09/14/23 Status: Ordered albuterol 0.083% for nebulization Start: 09/15/23 12:51:00 PM EST, 3 mL, inhaled, q6h, Disp# 25 each, Refills: 1, Note to Pharmacy: Cancel albuterol HFA Rx sent on 09/14/2023, PRN: as needed for wheezing, Pharmacy: [facility]/pharmacy #[id number] Start Date: 09/15/23 Status: Ordered cyclobenzaprine 10 mg oral tablet Start: 11/26/20 3:12:00 PM EST, 1 tab, PO, tid, PRN: as needed for spasm Start Date: 11/26/20 Status: Ordered DULoxetine 60 mg oral delayed release capsule Start: 02/01/24 11:13:00 AM EDT, 1 cap, PO, Daily, Disp# 90 cap, Refills: 2, Pharmacy: [facility] Start Date: 02/01/24 Status: Ordered gabapentin 300 mg oral capsule Start: 08/06/23 10:23:00 AM EST, 1 cap, PO, qid Start Date: 08/06/23 Status: Ordered gabapentin 600 mg oral tablet Start: 12/03/23 2:33:00 PM EDT, 1 tab, PO, tid, Disp# 270 tab, Refills: 2, Pharmacy: [facility] Start Date: 12/03/23 Status: Ordered lisinopril 10 mg oral tablet Start: 12/02/23 9:48:00 AM EDT, 1 tab, PO, Daily, Disp# 90 tab, Refills: 3, [facility] Start Date: 12/02/23 Status: Ordered Metoprolol Succinate ER 200 mg oral tablet, extended release Start: 01/17/24 8:44:00 AM EDT, See Instructions, Disp# 90 tab, Refills: 3, TAKE ONE TABLET BY MOUTHEVERY DAY, Pharmacy: [facility] Start Date: 01/17/24 Status: Ordered venlafaxine 150 mg oral capsule, extended release Start: 02/22/24 10:08:00 AM EDT, 1 cap, PO, Daily, Disp# 90 cap, Refills: 3, Pharmacy: [facility] Start Date: 02/22/24 Status: Ordered venlafaxine 75 mg oral capsule, extended release Start: 08/06/23 10:27:00 AM EST, 1 cap, PO, Daily, Disp# 90 cap, Refills: 3, Note to Pharmacy: DISCONTINUE the 150 mg dose, Pharmacy: [facility] Start Date: 08/06/23 Stop Date: 07/31/24 Status: Ordered Mental Status 07/13/24 Barriers to Learning one year None evide nt Mandatory Health Literacy Documentation Yes Health Literacy Communication Barriers N ever Primary Language Albanian Problem List Condition Confirmation Course Effective Dates Status H ealth Status Informant Benign hypertension without congestive heart failure Confirmed Active Cubital tunnel syndrome on left Confirmed Active Cubital tunnel syndrome on right Confirmed Active Left lumbar radiculopathy Confirmed Active Hot flashes, menopausal Confirmed Active Mixed anxiety and depressive disorder Confirmed Active Panic attacks Confirmed Active Failed back syndrome Confirmed Active Right peroneal mononeuropathy Confirmed Active Sinus tachycardia Confirmed Active Spasm of muscle of lower back Confirmed Active Type 2 diabetes, HbA1c goal < 7% Confirmed Active Symptomatic PVCs Confirmed Active Diagnosis Diagnosis Type Effective Dates Health Status Clinical Service Informant Right peroneal mononeuropathy Discharge Diagnosis 07/13/24 Cubital tunnel syndrome on left Discharge Diagnosis 07/13/24 Cubital tunnel syndrome on right Discharge Diagnosis 07/13/24 Left lumbar radiculopathy Discharge Diagnosis 07/13/24 Procedures Procedure Date Related Diagnosis Body Site Status Mammogram 1 11/11/21 Completed Epidural injection of lumbar spine using fluoroscopic guidance 2 08/01/21 Co mpleted Colonoscopy 2017 Completed Cholecystectomy 2009 Completed Lumbar spinal fusion 11/2007 Comp leted Lumbar discectomy 09/2007 Complet ed Hysterectomy 2005 Completed Breast biopsy sample 2004 Co mpleted section 1998 Complete d Tonsillectomy and adenoidectomy [address] [place] [address] Impression: 1. No [facility]ographic evidence [facility] 3next due 2022 polyps 4Left Social History Social History Type Response Smoking Status Never smoked cigaret frank Sex Female Sex Representation Female (finding) Patient Care team information Care Team Personnel Name: CARMEN Beck, Elisa Cisneros Position: Physician Asst [facility] - Family Med Member Role: Primary Care Provider Address: [address] [place] [address], [place] [address] Care Team Related Persons Name: JOSE LUIS REYES
--- OUTSIDE RECORDS SUMMARY | 2024-10-03 05:57 | External Medical Summary | Summary of Care ---
Author Name Unknown Organization [facility] Address [address] [place] [address] Phone [phone] Care Team Providers Care Body Shop Floorperson Name Role Phone Roselia Ballesteros MD Primary Care Provider [phone] Encounter Details Date Type Department Care Team [...] 09/19/2024 10:00 AM EST Office Visit Orthopaedics [facility] [address] [address] Jonathan Rodrigez, [address] [address] Health Maintenance Due Date Last Done Comments [...] filedocumented as of this encounter Care Teams Body Shop Floorperson Relationship Specialty Start Date End Date Roselia Ballesteros MD [facility] [address] [place] [address] PCP - General Family Medicine 12/01/21 documented as of this encounter
--- OUTSIDE RECORDS SUMMARY | 2024-10-03 05:57 | External Medical Summary | Summary of Care ---
Author Name Unknown Organization [facility] Address [address] [place] [address] Phone [phone] Care Team Providers Care Detective And Intelligence Analyst Name Role Phone Roselia Ballesteros MD Primary Care Provider [phone] Encounter Details Date Type Department Care Team [...] 09/19/2024 10:00 AM EST Office Visit Orthopaedics [facility] [address] [address] Jonathan Rodrigez, [address] [address] Health Maintenance Due Date Last Done Comments [...] filedocumented as of this encounter Care Teams Detective And Intelligence Analyst Relationship Specialty Start Date End Date Roselia Ballesteros MD [facility] [address] [place] [address] PCP - General Family Medicine 12/01/21 documented as of this encounter
[2024-10-03 06:31] LABS: Basophils # (auto) 0.04 K/uL (0.00-0.20); Basophils % (auto) 0.3 %; Eosinophils # (auto) 0.02 K/uL (0.00-0.50); Eosinophils % (auto) 0.2 %; Hematocrit (blood only) 38.8 % (37.0-47.0); Hemoglobin 12.8 g/dl (12.0-16.0); Immature Granulocytes # (auto) 0.05 K/uL (0.01-0.20); Immature Granulocytes % (auto) 0.4 %; Lymphocytes # (auto) 2.11 K/uL (1.20-3.40); Lymphocytes % (auto) 16.3 %; Mean Corpuscular Hemoglobin 27.4 pg (25.0-34.0); Mean Corpuscular Volume 82.9 fL (80.0-100.0); Mean Platelet Volume 10.3 fL (9.4-12.4); Monocytes % (auto) 6.2 %; Neutrophils # (auto) 9.95 K/uL (1.40-6.50); Neutrophils % (auto) 76.6 %; Platelet Count 293 K/uL (130-400); RDW Coefficient of Variation 14.1 % (11.5-14.5); RDW Standard Deviation 42.2 fL (36.4-46.3); Red Blood Count 4.68 M/uL (4.20-5.40); White Blood Count 12.97 K/ul (4.8-10.8)
[2024-10-03 06:59] LABS: Albumin Globulin Ratio 1.7 (0.9-2); Albumin Level 4.1 gm/dl (3.4-5.0); BUN Creatinine Ratio 18.6 (10-20); Bilirubin,Total 0.7 mg/dl (0.2-1.0); Calcium 9.1 mg/dl (8.6-10.3); Creatinine Clr Calc Pharmacy 113.5 ml/min; Globulin 2.4 gm/dl (2.5-4.0); Potassium 4.6 mmol/L (3.5-5.1); Total Protein 6.5 gm/dl (6.0-8.3)
[2024-10-03 07:05] LABS: Troponin I High Sensitivity 3.7 pg/ml (0-14)
--- NOTE | 2024-10-03 08:51 | Urology Consultation ---
Date of Consultation October 03, 2024 Assessment & Plan (1) Ureteropelvic junction calculus: 53-year-old female who was transferred from [facility] due to right UPJ calculus and concern for right forniceal rupture with urine leak. Patient afebrile and hemodynamically stable Labs todaycreatinine 0.7, WBC 12.97, hemoglobin 12.8 Uncertain if urine testing was performed at outside hospital She was initiated on IV Zosyn and has been continued on it CT imaging from outside facility personally reviewed and showed small right proximal stone measuring 5 mm with concern for right forniceal rupture with urine leak Discussed options for management including cystoscopy and right ureteral stent placement She would like to proceed with surgical intervention today Proceed to OR for cystoscopy and right ureteral stent placement Risk and benefits of procedure to be reviewed with patient by Dr. Lee Ureteral stents were discussed in detail Keep NPO for procedure Continue supportive care and medical management per hospital medicine Supervising Physician Co-Signing Physician Notes Agree with above. Plan for cystoscopy and right ureteral stent placement History of Present Illness Reason for Consultation: Right UPJ stone Requesting Physician: Dr. Baker Attending Physician: Kade Loya MD History of Present Illness This is a 53-year-old female with past medical history of hypertension, history of cholecystectomy, and lumbar radiculopathy with history of lumbar laminectomy who was transferred from [facility] due to right UPJ calculus and concern for right forniceal rupture with urine leak. Per admitting notes, patient initially presented to [facility] ED for evaluation of chest pain radiating to her back and down her left arm associated with nausea, vomiting and diaphoresis. An EKG was performed and unremarkable and troponins were negative x 1. She subsequently developed right flank pain. Workup included CT AP which demonstrated a right UPJ stone measuring 5 mm with associated right hydroureteronephrosis as well as findings concerning for right forniceal rupture with urine leak. She was transferred to [facility] since there was no urologist on-call at . She was treated with IV fluids, Zosyn and Dilaudid. Outside labs showed WBC 12.48, hemoglobin 14.2, creatinine 1.01. Patient seen and examined at bedside. She is awake and resting in bed. She reports she feels better since arrival. No nausea or vomiting. No fever or chills. She is voiding spontaneously. No dysuria or hematuria. No personal history of kidney stones. She reports family history of stones with her father and brothers. Currently NPO. Allergies Allergy/AdvReac Type Severity Reaction Status Date / Time acetaminophen [From Percocet] Allergy Severe Anaphylaxis Verified 03/28/24 10:00 oxycodone [From Percocet] Allergy Severe Anaphylaxis Verified 03/28/24 10:00 sumatriptan Allergy Unknown INCREASED Verified 03/28/24 10:00 HEART RATE, CHEST PAIN, NAUSEA tramadol Allergy Severe Anaphylaxis Uncoded 03/28/24 10:00 Home Medications Medication Instructions Recorded Confirmed Type acetaminophen 500 mg tablet 500 mg PO Q6H PRN 11/11/22 03/28/24 History (Tylenol Extra Strength) cyclobenzaprine 10 mg tablet 10 mg PO TID PRN 11/11/22 03/28/24 History ibuprofen 800 mg tablet 800 mg PO Q8H PRN 11/11/22 03/28/24 History lisinopril 10 mg tablet 10 mg PO DAILY 11/11/22 03/28/24 History metoprolol succinate 200 mg 200 mg PO DAILY 11/11/22 03/28/24 History tablet,extended release 24 hr venlafaxine 150 mg 150 mg PO DAILY 11/11/22 03/28/24 History capsule,extended release 24 hr (Effexor XR) duloxetine 60 mg capsule,delayed 60 mg PO HS #90 caps 02/22/23 03/28/24 Rx release (Cymbalta) gabapentin 400 mg capsule 400 mg PO BID 03/28/24 History Patient History Social History Smoking Status: Never smoker Hx Alcohol Use: No Hx Substance Use: No Preferred Language: Mohawk Communication Ability: Effective Visual Impairment: No Limitations Hearing Ability: Normal Research Psychologist Required: No Beliefs That Will Affect Care: None marital status: Current Living Situation: Spouse current occupational status: employed 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 [employer] Other Information That Helps Us Care for You: No Feels Safe at Home: Yes Safety Concerns: Feels Safe At This Time Assistive Devices: Glasses Review of Systems Review of Systems: All systems reviewed & are unremarkable except as noted in HPI & below Physical Exam Constitutional: well developed and well nourished; no acute distress Respiratory: normal respiratory effort; no respiratory distress and no labored breathing Gastrointestinal (Abdomen): Inspection/Auscultation: abdomen normal to inspection Musculoskeletal: Head/Neck/Chest: normocephalic Neurologic: moves all extremities and awake Psychiatric: Orientation: alert and oriented x 3 Results & Data Vital Signs (Past 12 Hours) Vital Signs Temp Pulse Resp BP Pulse Ox O2 Del Method 10/03/24 07:58 36.8 C 85 18 125/70 93 Room Air 10/03/24 02:00 36.6 C 86 16 128/67 92 Room Air PG Care Time/CCT Total # of Minutes Spent Total Time Spent with Patient: Total time spent is greater than 50% in coordination of care (as documented) at patient's floor/unit and/or counseling patient: Coding Level of Care Code 60824 IN/OBS CONSULT LVL 4,60M Diagnoses Ureteropelvic junction calculus N20.1
[2024-10-03] MEDS ORDERED: PIPERACILLIN/TAZOBACTAM 4.5 GM/100 ML BAG IV SCH (09:00)
[2024-10-03] MEDS ORDERED: METOPROLOL SUCC 50MG EXT REL TAB PO SCH (09:00)
[2024-10-03] MEDS ORDERED: lisinopril 10 MG TAB PO SCH (09:00)
[2024-10-03] MEDS: METOPROLOL SUCC 50MG EXT REL TAB PO SCH (09:06)
[2024-10-03] MEDS: GABAPENTIN 400 MG CAP PO SCH (09:07)
[2024-10-03] MEDS: VENLAFAXINE HCL XR 150 MG CAPXR PO SCH (09:07)
[2024-10-03] MEDS: PANTOprazole 40 MG/10 ML SYR IV SCH (09:16)
[2024-10-03 11:45] LABS: Appearance Urine Clear (Clear); Bilirubin Urine Negative (Negative); Blood Urine Negative (Negative); Color Urine Yellow; Glucose Urine UA Negative (Negative); Ketones Urine Negative (Negative); Leukocyte Esterase Urine Negative (Negative); Nitrite Urine Negative (Negative); Protein Urine Negative (Negative); Specific Gravity Urine 1.021 (1.000-1.030); Urobilinogen Urine Negative (Negative)
[2024-10-03] MEDS ORDERED: ONDANSETRON INJ 2 MG/ML 2 ML VIAL ONE (12:02)
[2024-10-03] MEDS ORDERED: PROPOFOL IV EMULSION 10 MG/ML 20 ML VIAL IV ONE (12:02)
[2024-10-03] MEDS ORDERED: MIDAZOLAM HCL 1 MG/ML 2ML VIAL ONE (12:02)
[2024-10-03] MEDS ORDERED: LIDOCAINE 2% 2 ML VIAL/AMP(20MG/ML) INFIL ONE (12:02)
[2024-10-03] MEDS ORDERED: DEXAMETHASONE SOD INJ 4 MG/ML VIAL ONE (12:02)
[2024-10-03] MEDS ORDERED: fentaNYL citrate PF 100 MCG/2 ML VIAL ONE (12:03)
[2024-10-03] MEDS ORDERED: GLYCOPYRROLATE 0.2 MG/ML VIAL ONE (12:08)
[2024-10-03] MEDS ORDERED: ePHEDrine sulfate 50 MG/ML AMP IV PRN (12:33)
[2024-10-03] MEDS ORDERED: ATROPINE SULFATE 0.1 MG/ML 10ML SYR IV PRN (12:33)
[2024-10-03] MEDS ORDERED: fentaNYL citrate PF 100 MCG/2 ML VIAL IV PRN (12:33)
--- NOTE | 2024-10-03 12:33 | Anesthesiology Consultation ---
Date of Service October 03, 2024 Assessment & Plan Chart Review Chart Review: Acceptable Risk for Surgery and Patient NOT seen in Pre Admission Testing Consults Requested none ASA ASA2 Proposed Anesthesia Anesthesia Type: MAC Risk / Benefits Reviewed With: PT / POA / Parent / Guardian, Accepts Plan and Informed Consent Obtained History Surgery Operation Date: 10/03/24 09:40 Proposed Procedures p Cystoscopy Right Ureteral Stent Placement - Onesimo Lee MD Height/Weight Height: 5 ft 8 in Weight: 99.798 kg Allergies Allergy/AdvReac Type Severity Reaction Status Date / Time acetaminophen [From Percocet] Allergy Severe Anaphylaxis Verified 03/28/24 10:00 oxycodone [From Percocet] Allergy Severe Anaphylaxis Verified 03/28/24 10:00 sumatriptan Allergy Unknown INCREASED Verified 03/28/24 10:00 HEART RATE, CHEST PAIN, NAUSEA tramadol Allergy Severe Anaphylaxis Uncoded 03/28/24 10:00 Medications Home Medications Medication Instructions Recorded Confirmed Last Taken acetaminophen 500 mg tablet 500 mg PO Q6H PRN 11/11/22 03/28/24 Unknown (Tylenol Extra Strength) cyclobenzaprine 10 mg tablet 10 mg PO TID PRN 11/11/22 03/28/24 Unknown ibuprofen 800 mg tablet 800 mg PO Q8H PRN 11/11/22 03/28/24 Unknown lisinopril 10 mg tablet 10 mg PO DAILY 11/11/22 03/28/24 Unknown metoprolol succinate 200 mg 200 mg PO DAILY 11/11/22 03/28/24 Unknown tablet,extended release 24 hr venlafaxine 150 mg 150 mg PO DAILY 11/11/22 03/28/24 Unknown capsule,extended release 24 hr (Effexor XR) duloxetine 60 mg capsule,delayed 60 mg PO HS #90 caps 02/22/23 03/28/24 Unknown release (Cymbalta) gabapentin 400 mg capsule 400 mg PO BID 03/28/24 Unknown Active Medications Generic Name Dose Route Start Last Admin Trade Name Freq PRN Reason Stop Dose Admin Gabapentin 400 mg 10/03/24 09:00 10/03/24 09:07 Gabapentin 400 Mg Cap PO 11/02/24 08:59 400 mg BID MIRIAM Administration Hydromorphone HCl 0.25 mg 10/03/24 03:48 10/03/24 04:35 Hydromorphone Inj 0.5 Mg/0.5 Ml Syr IV 10/17/24 03:47 0.25 mg Q3H PRN Administration Mod-Sev Pain (Scale 4-10) Pantoprazole Sodium 40 mg in 10 mls @ 5 mls/min 10/03/24 09:00 10/03/24 09:16 Protonix IV 11/02/24 08:59 5 mls/min DAILY MIRIAM Administration Sodium Chloride 1,000 mls @ 80 mls/hr 10/03/24 04:00 10/03/24 04:32 Nss IV 10/03/24 16:29 80 mls/hr .[id number] MIRIAM Administration Metoprolol Succinate 100 mg 10/03/24 09:00 10/03/24 09:06 Metoprolol Succ 50mg Ext Rel Tab PO 11/02/24 08:59 100 mg BID MIRIAM Administration Venlafaxine HCl 150 mg 10/03/24 09:00 10/03/24 09:07 Venlafaxine Hcl Xr 150 Mg Capxr PO 11/02/24 08:59 150 mg DAILY MIRIAM Administration NPO Date Last Intake of Fluids: 10/02/24 Time Last Intake of Fluids: 23:00 Last Intake of Fluids Comment: 0800 sip water for med Date Last Intake of Solids: 10/02/24 Time Last Intake of Solids: 23:00 Exercise / Class Metabolic Activity II 4-5 Yardwork/Stairs/Walk up hill Past Anesthesia History No Hx of Anesthesia Complications and No Family Hx of Anesthesia Complications History of PONV No Hx of PONV and No Hx of Motion Sickness Social History Smoking Status: Never smoker Hx Alcohol Use: No Hx Substance Use: No Physical Exam Vital Signs Last Vital Signs Temp 36.8 C 10/03/24 12:24 Pulse 86 10/03/24 12:24 Resp 18 10/03/24 12:24 BP 126/72 10/03/24 12:24 Pulse Ox 96 10/03/24 12:24 O2 Del Method Room Air 10/03/24 12:24 ENMT Mouth: no dentition abnormality Thyromental Distance: > or= 3.5 Finger Breadths Mallampati Class: II Neck normal visual inspection Respiratory normal respiratory effort Auscultation: lungs clear to auscultation bilaterally Cardiovascular Rate/Rhythm: regular rate and regular rhythm Psychiatric Orientation: alert Testing Laboratory Results 10/03/24 06:09 10/03/24 06:09 Urine Color Yellow 10/03/24 11:34 Urine Appearance Clear (Clear) 10/03/24 11:34 Urine pH 5.0 (4.5-7.5) 10/03/24 11:34 Ur Specific [place] 1.021 (1.000-1.030) 10/03/24 11:34 Urine Protein Negative (Negative) 10/03/24 11:34 Urine Glucose (UA) Negative (Negative) 10/03/24 11:34 Urine Ketones Negative (Negative) 10/03/24 11:34 Urine Nitrite Negative (Negative) 10/03/24 11:34 Ur Leukocyte Esterase Negative (Negative) 10/03/24 11:34
--- NOTE | 2024-10-03 13:17 | Operative Report ---
PG Post Operative Report Pre & Post Diagnosis Operation Date: 10/03/24 09:40 Pre-Op Diagnosis: Obstructing ureteral pelvic junction stone Post-Op Diagnosis: Obstructing ureteral pelvic junction stone I identified the patient and participated in the time-out.: Yes Procedure Operation Date: 10/03/24 09:40 Actual Procedures p Cystoscopy, Right Ureteral Stent Placement(Not Applicable) - Onesimo Lee MD Surgeon Onesimo Lee MD Environmental Auditor none Estimated Blood Loss 0 Findings Consistent with Post-Op Diagnosis Specimens none Description of Procedure The patient was identified in the preoperative holding area, appropriate informed consents were reviewed and completed and the patient was transferred to the operative suite. Upon arrival, appropriate antibiotics and anesthesia were administered and the patient was placed in dorsal lithotomy position and prepped and draped in sterile fashion. To begin the case I passed a 22 Arabic cystoscope per urethra. Full inspection of the bladder was conducted revealing mild squamous metaplasia but ureteral orifices in orthotopic position and no other abnormalities of the bladder. Following my inspection I turned my attention to the right ureteral orifice and cannulated it with a sensor wire. The wire advanced to the kidney without difficulty. I then proceeded to place a 6 Arabic by 24 cm double-J stent. Was good curl in the kidney as well as the bladder. More portly there was urine draining through and around the stent after deployment. She was reversed of anesthesia and taken to the recovery room in stable condition. There were no complications. I attest to the content of the Intraoperative Record and any orders documented t herein. Any exceptions are noted below.
[2024-10-03] MEDS ORDERED: CYCLOBENZAPRINE HCL 10 MG TAB PO PRN (13:40)
[2024-10-03] MEDS: PIPERACILLIN/TAZOBACTAM 4.5 GM/100 ML BAG IV SCH (13:57)
--- NOTE | 2024-10-03 14:07 | Anesthesiology Progress Note ---
Date of Service October 03, 2024 Anesthesia Post Procedure Vital Signs Vital Signs: Temp Pulse Pulse Resp BP BP Pulse Ox 10/03/24 13:45 36.7 C 89 16 116/72 95 10/03/24 13:35 36.6 C 90 13 111/64 94 10/03/24 13:25 94 H 13 110/67 100 10/03/24 13:18 36.5 C 101 H 16 115/64 100 10/03/24 12:24 36.8 C 86 18 126/72 96 10/03/24 07:58 36.8 C 85 18 125/70 93 10/03/24 02:00 36.6 C 86 16 128/67 92 O2 Del Method O2 Flow Rate 10/03/24 13:45 Room Air 10/03/24 13:35 Room Air 10/03/24 13:25 Oxymask 2 10/03/24 13:18 Oxymask 7 10/03/24 12:24 Room Air 10/03/24 07:58 Room Air 10/03/24 02:00 Room Air Pain Intensity Right Flank: Pain Intensity: 6 Transfer of Care Handoff Completed per policy Notes Mental Status: alert / awake / arousable Patient Amnestic to Procedure: Yes Nausea / Vomiting: adequately controlled Pain: adequately controlled Airway Patency, RR, SpO2: stable & adequate BP & HR: stable & adequate Hydration State: stable & adequate Anesthetic Complications: no major complications apparent
[2024-10-03] MEDS: ACETAMINOPHEN 500 MG TAB PO PRN (14:14)
--- NOTE | 2024-10-03 15:29 | Fluoroscopy Report ---
FL KUB CLINICAL HISTORY: CYSTO TECHNIQUE: 1 views were obtained with the C-arm in the OR with the above procedure. Total fluoroscopy time was 2.7 seconds. Radiation dose was 0.77 mGy. Comparison: Comparison is made to CT abdomen pelvis 10/02/2014 FINDINGS/IMPRESSION: Intraoperative images were obtained of right nephroureteral stent exchange. In t he final images, the stent is in satisfactory position. Please correlate with intraoperative fluoroscopy and operative report. ACT 112: Negative or not required by law. Electronically signed by: Luis Cardenas M.D. 10/03/2024 3:28 PM
[2024-10-03 16:52] VITALS: BP 123/67; PULSE 92; RESP 16; TEMP 98.6; O2SAT 93
--- NOTE | 2024-10-03 18:28 | Discharge Summary ---
Discharge Summary Date of Service October 03, 2024 Principal Dx & Hospital Course #1 = Principal Diagnosis Admission HPI Per Admitting Provider Chata is a 53-year-old female with past medical history of hypertension, history of cholecystectomy, and lumbar pain with occasional radiation to lower extremities with history of lumbar laminectomy who was transferred from [facility] due to right UPJ calculus and concern for right forniceal rupture with urine leak. Patient presented to [facility] ED after experiencing central chest pain that radiated to her back and down her left arm, had a 10/10 in intensity, and was associated to N/V and diaphoresis. On arrival to ED, EKG was done and unremarkable and troponins were negative x 1. After short while, patient started developing right flank pain that was more noticeable than the chest pain that she had arrived to the ED for. Patient does have history of cholecystectomy. CT done in [facility] did report a right UPJ stone measuring 0.5 cm with associated right hydroureteronephrosis, as well as findings that were concerning for a right forniceal rupture with urine leak. Patient was then transferred to [facility] since Urologist was not available at . At time of arrival, patient denies having any pain in her right flank and is reporting a persistent but more dull ache in the center of her chest that is much more mild than it was at time of onset. Denies having any fevers, chills, weakness, palpitations, SOB, N/V/D, or any other systemic sxs ED Course: Patient given NSS 1L bolus x2, Zosyn IV x 1, Dilaudid for pain control Labs/Imaging (taken at ): CBC with leukocytosis of 12.48 with neutrophilic predominance, hemoglobin of 14.2 and hematocrit of 43.3, platelets of 352. CMP with BUN of 15.9 and creatinine of 1.01. LFTs unremarkable. Troponin < 3 (no repeat). Lipase 53. Chest CT unremarkable. CTAP showing right sided hydroureteronephrosis secondary to 0.5 cm UPJ stone and a right forniceal rupture with urine leak. Medical History: [Reviewed] Medications: [Reviewed] Surgical History: [Reviewed] Family history: [Reviewed] Allergies: [Reviewed] Social History: [Reviewed] Discharge Plan Discharge Items Patient Disposition: Home - Self-Care Reason For Visit: OBSTRUCTING UPJ STONE Discharge Diagnosis: Obstructing 5mm right-sided kidney stone with placement of ureteral stent by Dr Onesimo Lee, [facility] Chest discomfort - resolved; no evidence of heart attack, blood clots of the lungs, aortic aneurysm rupture or dissection Activity: As commented below Activity Comment: no strenuous activities; light activities only Lifting: No more than 10 pounds Sexual Activity: Wait until after follow-up appointment Exercise/Sports: Wait until after follow-up appointment Driving/Machine Use: Resume 1 day after discharge Non-emergency contact: Primary Care Provider and Urologist Call non-emergency contact if: you have any medication questions, your symptoms worsen, your pain is not controlled, your pain is worsening and you have a fever Follow-up/Referrals: Onesimo Lee MD [Physician] - (1-2 weeks for stone & stent management ) Roselia Ballesteros MD [Primary Care Provider] - (1 week ) Diet: Regular Addtl Attending Provider Instructions: Jeanmarie Velez were hospitalized for a 5mm right-sided kidney stone causing obstruction/blockage of urine flow. You were transferred from [facility] to [facility] and underwent consultation with [facility]. Urology performed cystoscopy with stent placement in the right ureter. You tolerated this procedure well. During your stay your vital signs & labs remained stable. You tolerated a diet after your procedure. You received IV antibiotics as a precautionary measure while here for urinary tract infection prevention. The exact cause of your chest pain was uncertain. However, blood clots, heart attack, and aortic aneurysm rupture were ruled out. Finally, as an incidental finding on your CT scan at [facility], you had a benign-appearing nodule on your left adrenal gland. Please talk to your family doctor about this. These are typically benign/not harmful. These usually do not require any treatment but your family doctor might refer you to an landscape horticulture instructor to be complete. Recommendations - 1. for urinary pain/burning - phenazopyridine 100mg every 8 hours as needed; this medicine will turn your urine orange color. 2. for bladder pain/spasm - oxybutinin 5mg every 12 hours as needed; common side effects - dry mouth, dry eyes. 3. tamsulosin 0.4mg daily at bedtime; this is to prevent stent pain/spasm. Common side effect - dizziness. 4. for prevention of urinary infection - cephalexin 500mg twice daily x 5 days, first dose tomorrow morning. 5. OK to take tylenol as needed for pain; maximum 3000mg in 24 hours. 6. OK to take ibuprofen starting tomorrow as needed for pain. 7. Plenty of water daily to maintain good urine flow and for prevention of additional stones. Follow-up - see [facility] in 1-2 weeks to discuss timing of stone removal, etc. Return to [facility] if - * you have any concerns about your stent (see handout) * you see large amounts of blood in your urine * you have worsening back, flank or abdominal pain * you cannot pass your urine * any other concerns It was our pleasure to care for you! Pending Studies at Discharge: Yes Studies:: urine culture Stand-Alone Forms: [facility], Smoking Cessation Medications and DC Order Prescriptions: New tamsulosin 0.4 mg Capsule 0.4 mg PO HS Qty: 30 0RF phenazopyridine [Pyridium] 100 mg tablet 100 mg PO Q8H PRN (Reason: urinary pain/burning) Qty: 20 0RF oxybutynin chloride 5 mg tablet 5 mg PO Q12H PRN (Reason: bladder spasms/pain) Qty: 20 0RF cephalexin 500 mg capsule 500 mg PO BID 5 Days Qty: 10 0RF Rx Instructions: start AM of 10/04/24 Continued metoprolol succinate 200 mg tablet extended release 24 hr 200 mg PO DAILY venlafaxine [Effexor XR] 150 mg capsule,extended release 24hr 150 mg PO DAILY cyclobenzaprine 10 mg tablet 10 mg PO TID PRN (Reason: muscle spasms) Rx Instructions: Unable to verify med at this date/time. acetaminophen [Tylenol Extra Strength] 500 mg tablet 500 mg PO Q6H PRN (Reason: Pain) Rx Instructions: Unable to verify OTC meds at this date/time. But this is listed as a component of Percocet on allergy list. ibuprofen 800 mg tablet 800 mg PO Q8H PRN (Reason: Pain) duloxetine [Cymbalta] 60 mg capsule,delayed release(DR/EC) 60 mg PO HS Qty: 90 0RF gabapentin 400 mg capsule 400 mg PO BID Patient Comments: as of 03/09/24 Rx Instructions: Last filled 02/2024 x90 day supply as 400mg po TID along w/ 600mg po TID. Unable to verify w/ pt is this is still being taken or not. Held lisinopril 10 mg tablet 10 mg PO DAILY Hold Instructions: hold for now Discharge Orders: Discharge Order (Routine); Ordered 10/03/24 Ordered By: Kade Richards/Other Patient Handouts: Anatomy of the Female Urinary Tract, Having a Ureteral Stent, Understanding Kidney Stones, Preventing Kidney Stones, Cystoscopy, ED Kidney Stone with Pain Admission Data Admit Date/Time: 10/03/24 01:42 Attending Provider: Kade Loya Admit Provider: Severino Tatum Primary Care Provider: Roselia Ballesteros Other Providers: Magno Shukla Hospital Stay Data Consultations 10/03/24 02:24 Consult Urology Routine Procedures Performed Operation Date: 10/03/24 09:40 Actual Procedures p Cystoscopy, Right Ureteral Stent Placement(Not Applicable) - Onesimo Lee MD Diagnostic Imagining Performed 10/03/24 FL KUB Routine Pending Results Patient Have Any Pending Studies at Discharge: Yes Discharge Instructions Given to Patient (Per Discharging Provider) Mrs Matthew, Jeanmarie were hospitalized for a 5mm right-sided kidney stone causing obstruction/blockage of urine flow. You were transferred from [facility] to [facility] and underwent consultation with [facility]. Urology performed cystoscopy with stent placement in the right ureter. You tolerated this procedure well. During your stay your vital signs & labs remained stable. You tolerated a diet after your procedure. You received IV antibiotics as a precautionary measure while here for urinary tract infection prevention. The exact cause of your chest pain was uncertain. However, blood clots, heart attack, and aortic aneurysm rupture were ruled out. Finally, as an incidental finding on your CT scan at [facility], you had a benign-appearing nodule on your left adrenal gland. Please talk to your family doctor about this. These are typically benign/not harmful. These usually do not require any treatment but your family doctor might refer you to an landscape horticulture instructor to be complete. Recommendations - 1. for urinary pain/burning - phenazopyridine 100mg every 8 hours as needed; this medicine will turn your urine orange color. 2. for bladder pain/spasm - oxybutinin 5mg every 12 hours as needed; common side effects - dry mouth, dry eyes. 3. tamsulosin 0.4mg daily at bedtime; this is to prevent stent pain/spasm. Common side effect - dizziness. 4. for prevention of urinary infection - cephalexin 500mg twice daily x 5 days, first dose tomorrow morning. 5. OK to take tylenol as needed for pain; maximum 3000mg in 24 hours. 6. OK to take ibuprofen starting tomorrow as needed for pain. 7. Plenty of water daily to maintain good urine flow and for prevention of sarita tional stones. Follow-up - see [facility] in 1-2 weeks to discuss timing of stone removal, etc. Return to [facility] if - * you have any concerns about your stent (see handout) * you see large amounts of blood in your urine * you have worsening back, flank or abdominal pain * you cannot pass your urine * any other concerns It was our pleasure to care for you! Coding
[2024-10-03] MEDS ORDERED: DULoxetine HCL 60 MG CAP PO SCH (21:00)
[2024-10-03] MEDS ORDERED: TAMSULOSIN HCL 0.4 MG CAP PO SCH (21:00)
--- NOTE | 2024-10-04 09:42 | Electrocardiogram Report ---
Test Reason : Blood Pressure : */* mmHG Vent. Rate : 88 BPM Atrial Rate : 88 BPM P-R Int : 170 ms QRS Dur : 72 ms QT Int : 354 ms P-R-T Axes : 56 19 24 degrees QTcB Int : 428 ms Normal sinus rhythm Low voltage QRS Nonspecific T wave abnormality Abnormal ECG No previous ECGs available Confirmed by Jaden Lange ([id number]) on 10/04/2024 9:42:11 AM Referred By: Severino Tatum Confirmed By: Jaden Lange
== END 2024-10-03 18:40 | disposition home or self-care (01) | DRG 661 ==
LOC: 3N 10-03 01:42 → SUATTDRO 10-03 01:42

== ENCOUNTER 2025-05-06 08:27 | Observation (INO) ==
[2025-05-06] MEDS: KETOROLAC TROMETHAMINE 15 MG/ML VIAL IV STA (08:40)
[2025-05-06] MEDS: ONDANSETRON INJ 2 MG/ML 2 ML VIAL IV STA (08:40)
[2025-05-06] MEDS: SODIUM CHLORIDE 0.9% 1,000 ML IV STA (08:41)
--- NOTE | 2025-05-06 08:45 | Emergency Department Note ---
Impression & Plan Renal colic, Right flank pain, Vomiting, Failure of outpatient treatment ED Provider Note NAME: MARCELA REYES AGE: 54 SEX: F : 1970 ARRIVES VIA: Walk-In INFORMANT: [Patient] ED PROVIDER(S): [Jean Pierre Martin MD] CHIEF COMPLAINT: Kidney stone HISTORY OF PRESENT ILLNESS: Patient is a 54-year-old female who was in our ED 5 days ago and diagnosed with a proximal right 5 mm ureteral stone. The patient did see urology 3 days ago and she was advised to report to the ED if things escalate. She apparently, has required urologic intervention and stenting in the past. The patient states that she has had continued pain in the right flank and in the last 12 to 24 hours, things have escalated, she is vomiting despite the Zofran. The pain has increased and is now causing a lot of bladder spasm. No fever, no cough or cold or congestion. Of note, she has an anaphylactic reaction to Percocet, she has tolerated fentanyl and morphine in the past. PMHx/PSHx/Social Hx: See Below PHYSICAL EXAM: GENERAL: Patient is in mild to moderate distress from pain. HEENT: No acute trauma, normocephalic atraumatic, mucous membranes moist, no nasal congestion. NECK: No stridor, no adenopathy, no meningismus, trachea is midline. LUNGS: Clear to auscultation bilaterally, no wheeze, no rhonchi, breath sounds equal. HEART: Without murmurs gallops or rubs, regular rate and rhythm. ABDOMEN: Soft, tender along the entire right side of the abdomen, no distention. EXTREMITIES: No cyanosis, full range of motion of all the joints without pain or difficulty. NEUROLOGIC: Oriented x 3, no acute motor or sensory deficits, no focal weakness. SKIN: No jaundice, mild diaphoresis. Back: Right flank discomfort to percussion. DIFFERENTIAL DIAGNOSIS: Failed outpatient management, renal colic, UTI, hydronephrosis, renal failure, among others. EMERGENCY DEPARTMENT PROCEDURES: MEDICAL DECISION MAKING: There is a mild leukocytosis, this could be consistent with infection or just her pain and vomiting. There is a normal hemoglobin and platelet count. No bandemia. No renal failure or significant electrolyte abnormality. Urinalysis does not show findings of infection. KUB unfortunately did not demonstrate any obvious right ureteral stone. On exam, the patient had right flank discomfort with percussion, right abdominal pain with palpation, she seemed uncomfortable. Patient was given IV saline, IV Toradol, IV Zofran and IV fentanyl. She was ordered for IV morphine to be given for additional pain control if needed. The patient was feeling improved after being medicated in the ED. I did speak with urology. The patient is to be hospitalized, she will likely undergo OR intervention today. I did speak with the patient and case management, the on-call hospitalist was consulted. Prior/Outside records/notes reviewed: Previous ED visit note describing her presentation, findings and outpatient plan. Imaging/x-ray results per my interpretation: KUB did not show any obvious ureteral stone. Chronic Medical/Social conditions affecting care: None Care/Management discussed with: Urology-Dr. Renee. Case management and the on-call hospitalist. Level of care consideration(s): After review of the information above and other included data: --I believe the patient requires escalation of care to admission DISPOSITION: Admission Past Med/Surg History Problem List Failure of outpatient treatment (Acute) Vomiting (Acute) Right flank pain (Acute) Renal colic (Acute) Ureterolithiasis (Acute) Abdominal pain (Acute) Myofascial neck pain Cervical radiculitis Chest pain Lumbar radiculopathy Paresthesia of left lower extremity Failed back surgical syndrome Lumbar post-laminectomy syndrome S/P lumbar fusion L4-5 2007 H/O: hysterectomy Medical History Ureteropelvic junction calculus HTN (hypertension) Anxiety Depression History of cervical dysplasia Diabetes mellitus, type 2 diet controlled Fatty liver Hx of gastric ulcer Hx of gastroesophageal reflux (GERD) controlled currently History of diverticulosis Hx of colonic polyps Spinal stenosis follows with pain mgmt Degenerative disc disease Chronic back pain follows with pain mgmt Paresthesia of left lower extremity chronic - since lumbar surgery Lumbar radiculopathy, chronic Thoracic aortic aneurysm monitors annually with PCP, stable per patient. dx ~2014. (hx of seeing [facility], Dr. Guajardo) Tachycardia controlled with metoprolol PVC (premature ventricular contraction) "palpitations at times" and has tachycardia - has had since ~2014, reason for metoprolol. 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 (pcp manages medications at this time) Hypertension Surgical History S/P ureteral stent placement (10/03/24) cysto, R stent 10/03/24: MAC without issue History of tonsillectomy History of esophagogastroduodenoscopy (EGD) History of colonoscopy History of cholecystectomy History of section x1 History of loop electrical excision procedure (LEEP) S/P LEO (total abdominal hysterectomy) S/P epidural steroid injection S/P lumbar laminectomy September 2007 S/P lumbar spinal fusion (2007) November 2007 -> lumbar discectomy and fusion L4/L5 Family History Father FHx: skin cancer Other No family history of adverse response to anesthesia Social History Smoking Status: Never smoker Second Hand Exposure: No; Do You Dip or Chew Tobacco: No; Hx Alcohol Use: Yes Hx Substance Use: No Preferred Language: Maltese Communication Ability: Effective Visual Impairment: No Limitations Hearing Ability: Normal Street Light Lamp Cleaner Required: No Beliefs That Will Affect Care: None marital status: Current Living Situation: Spouse current occupational status: employed 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 [employer] Feels Safe at Home: Yes Assistive Devices: Glasses Allergies Allergies Allergy/AdvReac Type Severity Reaction Status Date / Time oxycodone [From Percocet] Allergy Severe Anaphylaxis Verified 05/03/25 11:04 tramadol Allergy Severe Anaphylaxis Verified 05/03/25 11:04 sumatriptan Allergy Unknown INCREASED Verified 05/03/25 11:04 HEART RATE, CHEST PAIN, NAUSEA Home Meds Home Medications Medication Instructions Recorded Confirmed acetaminophen 500 mg tablet 500 mg PO Q6H PRN Pain 11/11/22 05/06/25 (Tylenol Extra Strength) cyclobenzaprine 10 mg tablet 10 mg PO TID PRN muscle spasms 11/11/22 05/06/25 ibuprofen 800 mg tablet 800 mg PO Q8H PRN Pain 11/11/22 05/06/25 metoprolol succinate 200 mg 200 mg PO QAM 11/11/22 05/06/25 tablet,extended release 24 hr gabapentin 600 mg tablet 600 mg PO TID 10/10/24 05/06/25 lisinopril 10 mg tablet 5 mg PO DAILY 04/18/25 05/06/25 blood sugar diagnostic ([facility] ea 05/03/25 05/03/25 Ultra Test strips) blood-glucose meter ([facility] ea 05/03/25 05/03/25 Ultra2 Meter) lancets 33 gauge ([facility]100 ea 05/03/25 05/03/25 Plus Lancet) venlafaxine 150 mg 150 mg PO QAM 05/03/25 05/06/25 capsule,extended release 24 hr (Effexor XR) Previous Rx's Medication Instructions Recorded duloxetine 60 mg capsule,delayed 60 mg PO HS #90 caps 02/22/23 release (Cymbalta) diazepam 5 mg tablet 5 mg PO UD PRN muscle spasm #3 tabs 02/07/25 ondansetron 4 mg disintegrating 4 mg PO Q8H PRN nausea and 05/01/25 tablet vomiting #20 tabs tamsulosin 0.4 mg capsule (Flomax) 0.4 mg PO DAILY #14 caps 05/01/25 Results & Data (ED) Vital Signs Vital Signs - 24 hr 05/06/25 08:29 05/06/25 08:47 05/06/25 09:17 Temperature 36.6 C Temperature Source Temporal Artery Scan Pulse Rate 79 65 Pulse Rate [Apical] 73 Respiratory Rate 18 12 Respiratory Effort / Characteristics Non-Labored Spontaneous Respiratory Depth Normal Respiratory Pattern Regular Blood Pressure 158/81 H Blood Pressure [Left Arm] 148/89 H Blood Pressure Mean 106 Blood Pressure Mean [Left Arm] 108 Pulse Oximetry 98 97 Oxygen Delivery Method Room Air Room Air Sepsis Recent Fever Within 48 Hours No Sepsis New/Unexplained Change in Mental Status N/A Sepsis Action Taken by Nursing No Action Required 05/06/25 09:44 Temperature Temperature Source Pulse Rate Pulse Rate [Apical] 75 Respiratory Rate 16 Respiratory Effort / Characteristics Respiratory Depth Respiratory Pattern Blood Pressure Blood Pressure [Left Arm] 149/83 H Blood Pressure Mean Blood Pressure Mean [Left Arm] 105 Pulse Oximetry 96 Oxygen Delivery Method Room Air Sepsis Recent Fever Within 48 Hours Sepsis New/Unexplained Change in Mental Status Sepsis Action Taken by [facility] Medications Current Medication List: was personally reviewed by me Laboratory Data Attestation: I reviewed the patient's lab results. 05/06/25 08:40 05/06/25 08:40 Lab Results 05/06/25 05/06/25 Range/Units 08:37 08:40 WBC 12.07 H (4.8-10.8) K/ul RBC 5.02 (4.20-5.40) M/uL Hgb 13.9 (12.0-16.0) g/dl Hct 42.9 (37.0-47.0) % MCV 85.5 (80.0-100.0) fL MCH 27.7 (25.0-34.0) pg MCHC 32.4 (32.0-36.0) g/dL RDW Std Deviation 43.7 (36.4-46.3) fL RDW Coeff of Mya 14.1 (11.5-14.5) % Plt Count 360 (130-400) K/uL MPV 10.5 (9.4-12.4) fL Immature Gran % (Auto) 0.3 % Neut % (Auto) 73.1 % Lymph % (Auto) 19.1 % [place] % (Auto) 4.9 % Eos % (Auto) 2.1 % Baso % (Auto) 0.5 % Neut # (Auto) 8.82 H (1.40-6.50) K/uL Lymph # (Auto) 2.31 (1.20-3.40) K/uL [place] # (Auto) 0.59 (0.11-0.59) K/uL Eos # (Auto) 0.25 (0.00-0.50) K/uL Baso # (Auto) 0.06 (0.00-0.20) K/uL Immature Gran # (Auto) 0.04 (0.01-0.20) K/uL Sodium 139 (136-145) mmol/L Potassium 4.4 (3.5-5.1) mmol/L Chloride 105 (98-107) mmol/L Carbon Dioxide 25 (21-32) mmol/L Anion Gap 9 (3-11) BUN 16 (6-23) mg/dl Creatinine 1.11 (0.6-1.2) mg/dl Est Cr Clr Drug Dosing 71.5 ml/min eGFR 58.70 BUN/Creatinine Ratio 14.4 (10-20) Glucose 118 H (70-99(Fasting)) mg/dl Calcium 9.5 (8.6-10.3) mg/dl Urine Color Yellow Urine Appearance Clear (Clear) Urine pH 5.0 (4.5-7.5) Ur Specific [place] 1.024 (1.000-1.030) Urine Protein Negative (Negative) Urine Glucose (UA) Negative (Negative) Urine Ketones Negative (Negative) Urine Blood Negative (Negative) Urine Nitrite Negative (Negative) Urine Bilirubin Negative (Negative) Urine Urobilinogen Negative (Negative) Ur Leukocyte Esterase Trace H (Negative) Urine WBC (Auto) 0-5 (0-5) /hpf Urine RBC (Auto) 0-2 (0-2) /hpf U Hyaline Cast (Auto) 0-2 (0-2) /lpf U Epithel Cells (Auto) 3-5 H (0-2) /hpf Urine Bacteria (Auto) None Seen (None Seen) Urine Comment Administered Medications Discontinued Medications Fentanyl Citrate (Fentanyl Citrate Pf 100 Mcg/2 Ml Vial) 100 mcg IV NOW STA Stop: 05/06/25 08:37 Last Admin: 05/06/25 08:41 Dose: 100 mcg Documented By: YAANAK Sodium Chloride (Nss) 1,000 mls @ 999 mls/hr IV .Q1H1M STA Stop: 05/06/25 09:34 Last Admin: 05/06/25 08:41 Dose: 999 mls/hr Documented By: AYANAK Ketorolac Tromethamine (Ketorolac Tromethamine 15 Mg/Ml Vial) 15 mg IV NOW STA Stop: 05/06/25 08:35 Last Admin: 05/06/25 08:40 Dose: 15 mg Documented By: AYANAK Ondansetron HCl (Ondansetron Inj 2 Mg/Ml 2 Ml Vial) 4 mg IV NOW STA Stop: 05/06/25 08:35 Last Admin: 05/06/25 08:40 Dose: 4 mg Documented By: AYANAK Imaging Data Radiologist's Impression: KUB X-Ray 05/06/25 08:35 2 views of the abdomen were obtained Findings: The bowel gas pattern appears unremarkable. No renal or ureteral calculi are seen. Surgical clips are seen suggestive of prior cholecystectomy. There is a lumbar fusion. There is lumbar scoliosis and degenerative disc disease Impression: Normal bowel gas pattern Electronically signed by Nahid Hernandez 05-06-2025 09:18 AM Discharge Plan Visit Data Chief Complaint: Kidney Stone Stated Complaint: KIDNEY STONE ED Provider: Jean Pierre Martin Discharge Problem: Renal colic, Right flank pain, Vomiting, Failure of outpatient treatment Patient Disposition: Admitted As Inpatient Condition: Fair Forms Stand Alone Forms: [facility] Prescriptions Prescriptions: No Action metoprolol succinate 200 mg tablet extended release 24 hr 200 mg PO QAM cyclobenzaprine 10 mg tablet 10 mg PO TID PRN (Reason: muscle spasms) acetaminophen [Tylenol Extra Strength] 500 mg tablet 500 mg PO Q6H PRN (Reason: Pain) Rx Instructions: Unable to verify OTC meds at this date/time. But this is listed as a component of Percocet on allergy list. ibuprofen 800 mg tablet 800 mg PO Q8H PRN (Reason: Pain) lisinopril 10 mg tablet 5 mg PO DAILY Hold Instructions: hold for now venlafaxine [Effexor XR] 150 mg capsule,extended release 24hr 150 mg PO QAM duloxetine [Cymbalta] 60 mg capsule,delayed release(DR/EC) 60 mg PO HS Qty: 90 0RF diazepam 5 mg tablet 5 mg PO UD PRN (Reason: muscle spasm) Qty: 3 0RF Rx Instructions: Take 1 (5 mg) tablet the night before injection, 1 tablet (5 mg) 2 hours before injection, and 1 (5 mg) tablet 30 minutes before injection as needed for anxiety (DME) blood-glucose meter [OneTouch Ultra2 Meter] Misc See Rx Instructions .ROUTE .MEDSUPPLY Qty: 1 Rx Instructions: As directed (DME) lancets [OneTouch Delica Plus Lancet] 33 gauge misc See Rx Instructions .ROUTE .MEDSUPPLY Qty: 100 Rx Instructions: As directed (DME) OneTouch Ultra Test Strip See Rx Instructions .ROUTE .MEDSUPPLY Qty: 10 Rx Instructions: As directed gabapentin 600 mg Tablet 600 mg PO TID ondansetron 4 mg tablet,disintegrating 4 mg PO Q8H PRN (Reason: nausea and vomiting) Qty: 20 0RF tamsulosin [Flomax] 0.4 mg capsule 0.4 mg PO DAILY Qty: 14 0RF Referrals Referrals: Roselia Ballesteros MD [Primary Care Provider] - Discharge Problem: Vomiting Qualifiers: Vomiting type: unspecified Nausea presence: with nausea Qualified Code(s): R 11.2 - Nausea with vomiting, unspecified
[2025-05-06 08:58] LABS: Appearance Urine Clear (Clear); Bacteria Urine Automated None Seen (None Seen); Cast Urine Automated 0-2 /lpf (0-2); Glucose Urine UA Negative (Negative); RBC Urine Automated 0-2 /hpf (0-2); WBC Urine Automated 0-5 /hpf (0-5)
[2025-05-06 09:10] LABS: Hematocrit (blood only) 42.9 % (37.0-47.0); Hemoglobin 13.9 g/dl (12.0-16.0); Immature Granulocytes # (auto) 0.04 K/uL (0.01-0.20); Immature Granulocytes % (auto) 0.3 %; Mean Corpuscular Hemoglobin 27.7 pg (25.0-34.0); Mean Corpuscular Volume 85.5 fL (80.0-100.0); Platelet Count 360 K/uL (130-400); RDW Standard Deviation 43.7 fL (36.4-46.3); Red Blood Count 5.02 M/uL (4.20-5.40); White Blood Count 12.07 K/ul (4.8-10.8)
--- NOTE | 2025-05-06 09:18 | XRay Report ---
2 views of the abdomen were obtained Findings: The bowel gas pattern appears unremarkable. No renal or ureteral calculi are seen. Surgical clips are seen suggestive of prior cholecystectomy. There is a lumbar fusion. There is lumbar scoliosis and degenerative disc disease Impression: Normal bowel gas pattern Electronically signed by Nahid Hernandez 05-06-2025 09:18 AM
[2025-05-06 09:27] LABS: Anion Gap 9.0 (3-11); Blood Urea Nitrogen 16.0 mg/dl (6-23); Calcium 9.5 mg/dl (8.6-10.3); Carbon Dioxide 25.0 mmol/L (21-32); Chloride 105.0 mmol/L (98-107); Creatinine Clr Calc Pharmacy 71.5 ml/min; Glucose 118.0 mg/dl (70-99(Fasting)); Potassium 4.4 mmol/L (3.5-5.1); Sodium 139.0 mmol/L (136-145)
--- NOTE | 2025-05-06 09:40 | Urology Consultation ---
Date of Consultation May 06, 2025 Assessment & Plan (1) Ureterolithiasis: (2) Right flank pain: (3) Vomiting: Plan 54-year-old female with a history of a right proximal obstructing ureteral calculus who has previously presented the emergency department. She was seen in outpatient urology and was scheduled for right stone treatment but developed nausea and right flank pain and presented back to the hospital. Afebrile with stable vitals mild leukocytosis but otherwise labs are within normal limits. The emergency department got a KUB which did not show any obvious stone but that could be limited due to body habitus as the patient's BMI is 34. She has been n.p.o. since yesterday. Given intractable pain, will proceed to the OR for cystoscopy and right ureteral stent placement. I do not think she needs an updated CT scan as her last CT scan was only 5 days ago and her symptoms have not changed. Suspect we cannot see the stone on KUB due to body habitus Remain n.p.o. Ancef to the OR Patient consented and marked History of Present Illness History of Present Illness 54-year-old female with a history of a right proximal obstructing ureteral calculus who has previously presented the emergency department. She was seen in outpatient urology and was scheduled for right stone treatment but developed nausea and right flank pain and presented back to the hospital. Afebrile with stable vitals mild leukocytosis but otherwise labs are within normal limits. The emergency department got a KUB which did not show any obvious stone but that could be limited due to body habitus as the patient's BMI is 34. She has been n.p.o. since yesterday. Allergies Allergy/AdvReac Type Severity Reaction Status Date / Time oxycodone [From Percocet] Allergy Severe Anaphylaxis Verified 05/03/25 11:04 tramadol Allergy Severe Anaphylaxis Verified 05/03/25 11:04 sumatriptan Allergy Unknown INCREASED Verified 05/03/25 11:04 HEART RATE, CHEST PAIN, NAUSEA Home Medications Medication Instructions Recorded Confirmed Type acetaminophen 500 mg tablet 500 mg PO Q6H PRN Pain 11/11/22 05/06/25 History (Tylenol Extra Strength) cyclobenzaprine 10 mg tablet 10 mg PO TID PRN muscle spasms 11/11/22 05/06/25 History ibuprofen 800 mg tablet 800 mg PO Q8H PRN Pain 11/11/22 05/06/25 History metoprolol succinate 200 mg 200 mg PO QAM 11/11/22 05/06/25 History tablet,extended release 24 hr duloxetine 60 mg capsule,delayed 60 mg PO HS #90 caps 02/22/23 05/06/25 Rx release (Cymbalta) gabapentin 600 mg tablet 600 mg PO TID 10/10/24 05/06/25 History diazepam 5 mg tablet 5 mg PO UD PRN muscle spasm #3 tabs 02/07/25 05/06/25 Rx lisinopril 10 mg tablet 5 mg PO DAILY 04/18/25 05/06/25 History ondansetron 4 mg disintegrating 4 mg PO Q8H PRN nausea and 05/01/25 05/06/25 Rx tablet vomiting #20 tabs tamsulosin 0.4 mg capsule (Flomax) 0.4 mg PO DAILY #14 caps 05/01/25 05/06/25 Rx blood sugar diagnostic (OneTouch #10 ea 05/03/25 05/03/25 History Ultra Test strips) blood-glucose meter (OneTouch #1 ea 05/03/25 05/03/25 History Ultra2 Meter) lancets 33 gauge (OneTouch Delica #100 ea 05/03/25 05/03/25 History Plus Lancet) venlafaxine 150 mg 150 mg PO QAM 05/03/25 05/06/25 History capsule,extended release 24 hr (Effexor XR) Patient History Medical History Ureteropelvic junction calculus HTN (hypertension) Anxiety Depression History of cervical dysplasia Diabetes mellitus, type 2 diet controlled Fatty liver Hx of gastric ulcer Hx of gastroesophageal reflux (GERD) controlled currently History of diverticulosis Hx of colonic polyps Spinal stenosis follows with pain mgmt Degenerative disc disease Chronic back pain follows with pain mgmt Paresthesia of left lower extremity chronic - since lumbar surgery Lumbar radiculopathy, chronic Thoracic aortic aneurysm monitors annually with PCP, stable per patient. dx ~2014. (hx of seeing [facility], Dr. Guajardo) Tachycardia controlled with metoprolol PVC (premature ventricular contraction) "palpitations at times" and has tachycardia - has had since ~2014, reason for metoprolol. 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 medications at this time) Hypertension Surgical History S/P ureteral stent placement (10/03/24) cysto, R stent 10/03/24: MAC without issue History of tonsillectomy History of esophagogastroduodenoscopy (EGD) History of colonoscopy History of cholecystectomy History of section x1 History of loop electrical excision procedure (LEEP) S/P LEO (total abdominal hysterectomy) S/P epidural steroid injection S/P lumbar laminectomy September 2007 S/P lumbar spinal fusion (2007) November 2007 -> lumbar discectomy and fusion L4/L5 Family History Father FHx: skin cancer Other No family history of adverse response to anesthesia Social History Smoking Status: Never smoker Second Hand Exposure: No; Do You Dip or Chew Tobacco: No; Hx Alcohol Use: Yes Hx Substance Use: No Preferred Language: Australian Communication Ability: Effective Visual Impairment: No Limitations Hearing Ability: Normal Finisher Brush Required: No Beliefs That Will Affect Care: None marital status: Current Living Situation: Spouse current occupational status: employed 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 [employer] Feels Safe at Home: Yes Assistive Devices: Glasses Physical Exam Physical Exam: General: Alert and oriented, no acute distress HEENT: Normocephalic, mucous membranes moist Pulmonary: Nonlabored respirations Abdomen: Nondistended Extremities: Moves all 4 spontaneously Neuro: No gross deficits Skin: Warm, dry, no rashes noted Results & Data Vital Signs (Past 12 Hours) Vital Signs Temp Pulse Pulse Resp BP BP Pulse Ox 05/06/25 09:17 65 05/06/25 08:47 73 12 148/89 H 97 05/06/25 08:29 36.6 C 79 18 158/81 H 98 O2 Del Method 05/06/25 09:17 05/06/25 08:47 Room Air 05/06/25 08:29 Room Air PG Care Time/CCT Total # of Minutes Spent Total Time Spent with Patient: Total time spent is greater than 50% in coordination of care (as documented) at patient's floor/unit and/or counseling patient: Coding Level of Care Code 21700 IN/OBS CONSULT LVL 3,45M Diagnoses Ureterolithiasis N20.1 Right flank pain R10.9 Vomiting R11.2 Nausea presence: with nausea Vomiting type: unspecified (3) Vomiting Nausea presence: with nausea Vomiting type: unspecified Qualified Code(s): R11.2 - Nausea with vomiting, unspecified
--- NOTE | 2025-05-06 10:10 | Anesthesiology Consultation ---
Date of Service May 06, 2025 Assessment & Plan Chart Review Chart Review: Acceptable Risk for Surgery, Patient NOT seen in Pre Admission Testing and data entry associate initiated Consults Requested none History Surgery Operation Date: 05/06/25 14:30 Proposed Procedures p Cystoscopy with Right Ureteral Stent(Right) - Yemi Renee MD Height/Weight Height: 5 ft 8 in Weight: 101.9 kg Allergies Allergy/AdvReac Type Severity Reaction Status Date / Time oxycodone [From Percocet] Allergy Severe Anaphylaxis Verified 05/03/25 11:04 tramadol Allergy Severe Anaphylaxis Verified 05/03/25 11:04 sumatriptan Allergy Unknown INCREASED Verified 05/03/25 11:04 HEART RATE, CHEST PAIN, NAUSEA Medications Home Medications Medication Instructions Recorded Confirmed Last Taken acetaminophen 500 mg tablet 500 mg PO Q6H PRN Pain 11/11/22 05/06/25 2 Days Ago (Tylenol Extra Strength) ~10/15/24 cyclobenzaprine 10 mg tablet 10 mg PO TID PRN muscle spasms 11/11/22 05/06/25 2 Weeks Ago ~10/03/24 ibuprofen 800 mg tablet 800 mg PO Q8H PRN Pain 11/11/22 05/06/25 2 Days Ago ~10/15/24 metoprolol succinate 200 mg 200 mg PO QAM 11/11/22 05/06/25 10/16/24 05:00 tablet,extended release 24 hr duloxetine 60 mg capsule,delayed 60 mg PO HS #90 caps 02/22/23 05/06/25 10/16/24 18:00 release (Cymbalta) gabapentin 600 mg tablet 600 mg PO TID 10/10/24 05/06/25 10/16/24 18:00 diazepam 5 mg tablet 5 mg PO UD PRN muscle spasm #3 tabs 02/07/25 05/06/25 Unknown lisinopril 10 mg tablet 5 mg PO DAILY 04/18/25 05/06/25 Unknown ondansetron 4 mg disintegrating 4 mg PO Q8H PRN nausea and 05/01/25 05/06/25 Unknown tablet vomiting #20 tabs tamsulosin 0.4 mg capsule (Flomax) 0.4 mg PO DAILY #14 caps 05/01/25 05/06/25 Unknown blood sugar diagnostic (OneTouch #10 ea 05/03/25 05/03/25 Unknown Ultra Test strips) blood-glucose meter (OneTouch #1 ea 05/03/25 05/03/25 Unknown Ultra2 Meter) lancets 33 gauge (OneTouch Delica #100 ea 05/03/25 05/03/25 Unknown Plus Lancet) venlafaxine 150 mg 150 mg PO QAM 05/03/25 05/06/25 Unknown capsule,extended release 24 hr (Effexor XR) Past Medical History Medical History Ureteropelvic junction calculus HTN (hypertension) Anxiety Depression History of cervical dysplasia Diabetes mellitus, type 2 diet controlled Fatty liver Hx of gastric ulcer Hx of gastroesophageal reflux (GERD) controlled currently History of diverticulosis Hx of colonic polyps Spinal stenosis follows with pain mgmt Degenerative disc disease Chronic back pain follows with pain mgmt Paresthesia of left lower extremity chronic - since lumbar surgery Lumbar radiculopathy, chronic Thoracic aortic aneurysm monitors annually with PCP, stable per patient. dx ~2014. (hx of seeing [facility], Dr. Guajardo) Tachycardia controlled with metoprolol PVC (premature ventricular contraction) "palpitations at times" and has tachycardia - has had since ~2014, reason for metoprolol. 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 manages medications at this time) Hypertension Past Family History Family History Father FHx: skin cancer Other No family history of adverse response to anesthesia Past Surgical History Surgical History S/P ureteral stent placement (10/03/24) cysto, R stent 10/03/24: MAC without issue History of tonsillectomy History of esophagogastroduodenoscopy (EGD) History of colonoscopy History of cholecystectomy History of section x1 History of loop electrical excision procedure (LEEP) S/P LEO (total abdominal hysterectomy) S/P epidural steroid injection S/P lumbar laminectomy September 2007 S/P lumbar spinal fusion (2007) November 2007 -> lumbar discectomy and fusion L4/L5 Social History Smoking Status: Never smoker Do You Dip or Chew Tobacco: No Hx Alcohol Use: Yes alcohol intake frequency: holidays/special occasions only Hx Substance Use: No Physical Exam Vital Signs Last Vital Signs Temp 36.6 C 05/06/25 08:29 Pulse 75 05/06/25 09:44 Resp 16 05/06/25 09:44 BP 149/83 H 05/06/25 09:44 Pulse Ox 96 05/06/25 09:44 O2 Del Method Room Air 05/06/25 09:44 Testing Laboratory Results 05/06/25 08:40 05/06/25 08:40 Urine Color Yellow 05/06/25 08:37 Urine Appearance Clear (Clear) 05/06/25 08:37 Urine pH 5.0 (4.5-7.5) 05/06/25 08:37 Ur Specific [place] 1.024 (1.000-1.030) 05/06/25 08:37 Urine Protein Negative (Negative) 05/06/25 08:37 Urine Glucose (UA) Negative (Negative) 05/06/25 08:37 Urine Ketones Negative (Negative) 05/06/25 08:37 Urine Nitrite Negative (Negative) 05/06/25 08:37 Ur Leukocyte Esterase Trace (Negative) H 05/06/25 08:37 Urine WBC (Auto) 0-5 /hpf (0-5) 05/06/25 08:37 Urine RBC (Auto) 0-2 /hpf (0-2) 05/06/25 08:37 U Hyaline Cast (Auto) 0-2 /lpf (0-2) 05/06/25 08:37 U Epithel Cells (Auto) 3-5 /hpf (0-2) H 05/06/25 08:37 Urine Bacteria (Auto) None Seen (None Seen) 05/06/25 08:37 Electrocardiogram Date: 05/01/25 Findings: + NSR @
--- NOTE | 2025-05-06 10:39 | History & Physical Report ---
Date of Service May 06, 2025 Assessment & Plan (1) Right flank pain: (2) Renal colic: (3) Ureterolithiasis: Plan Chata Matthew is a 54 y/o F with a past medical history of hypertension, nephrolithiasis, history of cholecystectomy, and lumbar pain with occasional radiation to lower extremities with history of lumbar laminectomy initially presenting on Tuesday 05/01 with R. flank pain controlled with pain/nausea medications and IV fluids with subsequent ED d/c and then presenting again on Sunday 05/06 due to worsening 10/10 R. flank pain only partially controlled with pain/nausea medications. R. flank pain, Renal colic, R. ureterolithiasis - CT AP (05/01): 5mm right upper ureter stone with mild hydronephrosis - KUB: Renal calculi not distinguished on imaging - Pain management: Toradol 15mg Q6H, Morphine 4mg Q4H, fentanyl x1 150 mcg given in ED - s/p 1L NSS bolus in ED - Urology consultation completed, R. stent placement recommended for this afternoon - NPO until procedure complete - Continue pain management with Tylenol/Toradol PRN post procedure - Anticipate d/c tomorrow morning - CBC/BMP ordered for AM Chronic problems: Chronic pain: Continue Duloxetine/Gabapentin SVT: Continue Metoprolol HTN: Continue Lisinopril 5mg QD History of Present Illness Chief Complaint: R. nephrolithiasis Primary Care Provider: Roselia Ballesteros MD Chata Matthew is a 54 y/o F with a past medical history of hypertension, nephrolithiasis, history of cholecystectomy, and lumbar pain with occasional radiation to lower extremities with history of lumbar laminectomy. Patient was seen 5 days prior, on Wednesday, in ED with R. flank pain and R. ureterolithiasis. At the time a 5mm stone was seen and patient's pain and nausea were controlled with medications prior to ED discharge. Patient was then seen in clinic by her urologist, Dr. Lee on and options for stone removal were discussed, and an appointment was set up for May 18 for stent placement. Today, R. flank pain was severe reported as a 10/10 and patient returned to the ED and was given pain medication and anti-emetics for nausea/vomiting control with resolution of nausea and reduction of pain to a 6/10. Patient reports a similar history of a 5mm UJP stone approximately 6 months ago in September that failed treatment with stent placement and required basket retrieval for stone removal. Patient reports a history of a chronic 8mm stone also present in the L. kidney that has been stable, monitored by urology, and without associated pain. Patient also reports a family history of kidney stones, and that although this issue began primarily in September 2024 for her, her father has also had a history of kidney stones and urology interventions/follow-up. Patient denies fevers, chills, chest pain, palpitations, SOB, cough, wheeze, dysuria/burning/hematuria. Patient is amenable to urology intervention today and potential admission overnight for her R. ureterolithiasis. ED course: CT AP (05/01): [id number] small L. adrenal gland nodular lesion, 5mm right upper ureter stone with mild hydronephrosis KUB: Renal calculi not distinguished on imaging Pain control: Toradol 15mg Q6H, Morphine 4mg Q4H, fentanyl x1 150 mcg 1x NSS 1L bolus Allergies Allergy/AdvReac Type Severity Reaction Status Date / Time oxycodone [From Percocet] Allergy Severe Anaphylaxis Verified 05/03/25 11:04 tramadol Allergy Severe Anaphylaxis Verified 05/03/25 11:04 sumatriptan Allergy Unknown INCREASED Verified 05/03/25 11:04 HEART RATE, CHEST PAIN, NAUSEA Home Medications Medication Instructions Recorded Confirmed Type acetaminophen 500 mg tablet 500 mg PO Q6H PRN Pain 11/11/22 05/06/25 History (Tylenol Extra Strength) cyclobenzaprine 10 mg tablet 10 mg PO TID PRN muscle spasms 11/11/22 05/06/25 History ibuprofen 800 mg tablet 800 mg PO Q8H PRN Pain 11/11/22 05/06/25 History metoprolol succinate 200 mg 200 mg PO QAM 11/11/22 05/06/25 History tablet,extended release 24 hr duloxetine 60 mg capsule,delayed 60 mg PO HS #90 caps 02/22/23 05/06/25 Rx release (Cymbalta) gabapentin 600 mg tablet 600 mg PO TID 10/10/24 05/06/25 History diazepam 5 mg tablet 5 mg PO UD PRN muscle spasm #3 tabs 02/07/25 05/06/25 Rx lisinopril 10 mg tablet 5 mg PO DAILY 04/18/25 05/06/25 History ondansetron 4 mg disintegrating 4 mg PO Q8H PRN nausea and 05/01/25 05/06/25 Rx tablet vomiting #20 tabs tamsulosin 0.4 mg capsule (Flomax) 0.4 mg PO DAILY #14 caps 05/01/25 05/06/25 Rx blood sugar diagnostic (OneTouch #10 ea 05/03/25 05/03/25 History Ultra Test strips) blood-glucose meter (OneTouch #1 ea 05/03/25 05/03/25 History Ultra2 Meter) lancets 33 gauge (OneTouch Delica #100 ea 05/03/25 05/03/25 History Plus Lancet) venlafaxine 150 mg 150 mg PO QAM 05/03/25 05/06/25 History capsule,extended release 24 hr (Effexor XR) Past Med/Surg History Problem List Failure of outpatient treatment (Acute) Vomiting (Acute) Right flank pain (Acute) Renal colic (Acute) Ureterolithiasis (Acute) Abdominal pain (Acute) Myofascial neck pain Cervical radiculitis Chest pain Lumbar radiculopathy Paresthesia of left lower extremity Failed back surgical syndrome Lumbar post-laminectomy syndrome S/P lumbar fusion L4-5 2007 H/O: hysterectomy Medical History Ureteropelvic junction calculus HTN (hypertension) Anxiety Depression History of cervical dysplasia Diabetes mellitus, type 2 diet controlled Fatty liver Hx of gastric ulcer Hx of gastroesophageal reflux (GERD) controlled currently History of diverticulosis Hx of colonic polyps Spinal stenosis follows with pain mgmt Degenerative disc disease Chronic back pain follows with pain mgmt Paresthesia of left lower extremity chronic - since lumbar surgery Lumbar radiculopathy, chronic Thoracic aortic aneurysm monitors annually with PCP, stable per patient. dx ~2014. (hx of seeing [facility], Dr. Guajardo) Tachycardia controlled with metoprolol PVC (premature ventricular contraction) "palpitations at times" and has tachycardia - has had since ~2014, reason for metoprolol. 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 at this time) Hypertension Surgical History S/P ureteral stent placement (10/03/24) cysto, R stent 10/03/24: MAC without issue History of tonsillectomy History of esophagogastroduodenoscopy (EGD) History of colonoscopy History of cholecystectomy History of section x1 History of loop electrical excision procedure (LEEP) S/P LEO (total abdominal hysterectomy) S/P epidural steroid injection S/P lumbar laminectomy September 2007 S/P lumbar spinal fusion (2007) November 2007 -> lumbar discectomy and fusion L4/L5 Family History Father FHx: skin cancer Other No family history of adverse response to anesthesia Social History Smoking Status: Never smoker Second Hand Exposure: No; Do You Dip or Chew Tobacco: No; Tobacco Cessation Education Requested by Patient: No Hx Alcohol Use: No Hx Substance Use: No Preferred Language: Latvian Communication Ability: Effective Visual Impairment: No Limitations Hearing Ability: Normal Financial Writer Required: No Beliefs That Will Affect Care: None marital status: Current Living Situation: Spouse current occupational status: employed 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 Skin: warm, dry, intact HEENT: NC/AT, anicteric sclera, conjunctiva without injection, moist mucus membranes. Heart: +S1/S2, regular, no m/r/g Lungs: equal air entry bilaterally, no rales/rhonchi/wheezes Abd: +BS, soft, R. flank tenderness 6/10. Ext: warm, no clubbing/cyanosis or edema Neuro: nonfocal, speech intact, no facial droop, moving all extremities. Results & Data Results & Data Vital Signs (Past 12 Hours) Vital Signs Temp Pulse Pulse Resp BP BP Pulse Ox 05/06/25 10:00 70 14 134/78 96 05/06/25 09:44 75 16 149/83 H 96 05/06/25 09:17 65 05/06/25 08:47 73 12 148/89 H 97 05/06/25 08:29 36.6 C 79 18 158/81 H 98 O2 Del Method 05/06/25 10:00 Room Air 05/06/25 09:44 Room Air 05/06/25 09:17 05/06/25 08:47 Room Air 05/06/25 08:29 Room Air Supervising Physician Co-Signing Physician Notes I personally examined the patient and verified all benítez points of history and exam, discussed case, and agree with decision making with Dr Alfaro Intractable pain consistent with prior kidney stones. Failing outpatient treatment. Discussed with urologyfor OR today. Vitals noted, in general she is awake and alert pleasant no distress. HEENT normocephalic atraumatic mucous membranes moist. Breathing unlabored no accessory muscle use good effort. Skin without rashes pallor or icterus. Neuro without focal deficits. Ureterolithiasis/failed outpatient treatmentfor cystoscopy and stenting to day. Otherwise as above. Resident Activity Tracking Resident Involvement: Resident Care Provided Care Provided: Adult Hospital Medicine
[2025-05-06] MEDS ORDERED: ONDANSETRON 4 MG OD TAB PO PRN (10:43)
[2025-05-06] MEDS ORDERED: IBUPROFEN 800 MG TAB PO PRN (10:43)
[2025-05-06] MEDS: MoRPHine SULFATE 4 MG/ML 1 ML CARP\\VIAL IV PRN (11:09)
[2025-05-06] MEDS ORDERED: ONDANSETRON INJ 2 MG/ML 2 ML VIAL IV PRN ×2 (12:46→14:17)
[2025-05-06] MEDS ORDERED: PROPOFOL IV EMULSION 10 MG/ML 20 ML VIAL IV ONE ×2 (13:48→14:24)
[2025-05-06] MEDS ORDERED: ONDANSETRON INJ 2 MG/ML 2 ML VIAL ONE (13:48)
[2025-05-06] MEDS ORDERED: DEXAMETHASONE SOD INJ 4 MG/ML VIAL ONE (13:48)
[2025-05-06] MEDS ORDERED: LIDOCAINE 2% 2 ML VIAL/AMP(20MG/ML) INFIL ONE (13:48)
[2025-05-06] MEDS: GABAPENTIN 600 MG TAB PO SCH (14:09)
[2025-05-06] MEDS ORDERED: ATROPINE SULFATE 0.1 MG/ML 10ML SYR IV PRN (14:17)
[2025-05-06] MEDS ORDERED: MIDAZOLAM HCL 1 MG/ML 2ML VIAL ONE (14:25)
[2025-05-06] MEDS: DIATRIZOATE MEGLUMINE 30% 100ML VIAL INSTIL ONE (14:39)
--- NOTE | 2025-05-06 14:42 | Operative Report ---
PG Post Operative Report Pre & Post Diagnosis Operation Date: 05/06/25 14:30 Pre-Op Diagnosis: (1) Ureterolithiasis: (2) Right flank pain: (3) Vomiting Post-Op Diagnosis: (1) Ureterolithiasis: (2) Right flank pain: (3) Vomiting I identified the patient and participated in the time-out.: Yes Procedure Operation Date: 05/06/25 14:30 Actual Procedures p Cystoscopy; Retrograde Pyelogram with radiographic interpretation; Ureteral Stent Insertion - Right (Not Applicable) - Yemi Renee MD Surgeon Yemi Renee MD Director Commercial Sales None Estimated Blood Loss 0 Findings See Below Moderate right hydronephrosis, stent in appropriate position Specimens None Drains 6 Martiniquais by 26 cm right ureteral stent Anesthesia Type MAC Complications none Indications 54-year-old female with a right proximal ureteral calculus and intractable pain Description of Procedure After informed consent was obtained, the patient was transported operative suite. MAC anesthesia was induced. The patient was placed in dorsolithotomy position prepped and draped in a sterile fashion. They received preoperative Ancef for antibiotic prophylaxis. An appropriate surgical timeout was performed. A 22 Martiniquais rigid scope was inserted per urethra into the bladder. Esparza cystoscopy revealed no stones or lesions. I turned my attention the right ureteral orifice and intubated this with a 5 Martiniquais open-ended catheter. A right retrograde pyelogram was shot which showed moderate hydronephrosis. A sensor wire was advanced into the kidney and confirmed fluoroscopically. A 6 Martiniquais by 26 cm right ureteral stent was deployed with a good proximal coil in the renal pelvis and a good distal coil noted in the bladder, confirmed fluoroscopically and under direct visualization, respectively. The bladder was emptied and the scope was removed. This concluded the end of the case. All counts were correct at the end of the case. I was present, scrubbed, and actively participated for the entirety of the procedure. I attest to the content of the Intraoperative Record and any orders documented therein. Any exceptions are noted below.
--- NOTE | 2025-05-06 14:58 | Anesthesiology Progress Note ---
Date of Service May 06, 2025 Anesthesia Post Procedure Vital Signs Vital Signs: Temp Pulse Pulse Pulse Resp BP BP 05/06/25 12:46 05/06/25 12:46 36.5 C 79 18 151/95 H 05/06/25 12:23 67 18 135/76 05/06/25 12:00 73 20 135/76 05/06/25 11:00 65 16 152/93 H 05/06/25 10:00 70 14 134/78 05/06/25 09:44 75 16 149/83 H 05/06/25 09:17 65 05/06/25 08:47 73 12 148/89 H 05/06/25 08:29 36.6 C 79 18 158/81 H Pulse Ox O2 Del Method 05/06/25 12:46 Room Air 05/06/25 12:46 97 Room Air 05/06/25 12:23 96 Room Air 05/06/25 12:00 96 Room Air 05/06/25 11:00 98 05/06/25 10:00 96 Room Air 05/06/25 09:44 96 Room Air 05/06/25 09:17 05/06/25 08:47 97 Room Air 05/06/25 08:29 98 Room Air Pain Intensity Flank: Pain Intensity: 6 Transfer of Care Handoff Completed per policy Notes Mental Status: alert / awake / arousable Patient Amnestic to Procedure: Yes Nausea / Vomiting: adequately controlled Pain: adequately controlled Airway Patency, RR, SpO2: stable & adequate BP & HR: stable & adequate Hydration State: stable & adequate Anesthetic Complications: no major complications apparent and Pt Satisfied with anesthetic care
--- NOTE | 2025-05-06 16:48 | Billing Data ---
Date of Service May 06, 2025 Coding Level of Care Code 15490 INT INP/OBS CARE
[2025-05-06] MEDS: ACETAMINOPHEN 500 MG TAB PO PRN (17:18)
[2025-05-06 17:59] VITALS: RESP 16
[2025-05-06] MEDS: CYCLOBENZAPRINE HCL 10 MG TAB PO PRN (20:15)
[2025-05-07 07:36] LABS: Hematocrit (blood only) 39.8 % (37.0-47.0); Hemoglobin 13.3 g/dl (12.0-16.0); Immature Granulocytes # (auto) 0.03 K/uL (0.01-0.20); Immature Granulocytes % (auto) 0.3 %; Mean Corpuscular Hemoglobin 28.1 pg (25.0-34.0); Mean Corpuscular Volume 84.1 fL (80.0-100.0); Platelet Count 314 K/uL (130-400); RDW Standard Deviation 43.1 fL (36.4-46.3); Red Blood Count 4.73 M/uL (4.20-5.40); White Blood Count 9.83 K/ul (4.8-10.8)
[2025-05-07 07:59] LABS: Anion Gap 6.0 (3-11); Blood Urea Nitrogen 13.0 mg/dl (6-23); Calcium 9.4 mg/dl (8.6-10.3); Carbon Dioxide 28.0 mmol/L (21-32); Chloride 104.0 mmol/L (98-107); Creatinine Clr Calc Pharmacy 107.3 ml/min; Glucose 112.0 mg/dl (70-99(Fasting)); Potassium 5.2 mmol/L (3.5-5.1); Sodium 138.0 mmol/L (136-145)
[2025-05-07 08:07] VITALS: BP 142/70; PULSE 90; TEMP 97.7; O2SAT 97
[2025-05-07] MEDS: METOPROLOL SUCC 50MG EXT REL TAB PO SCH (08:37)
[2025-05-07] MEDS: VENLAFAXINE HCL XR 150 MG CAPXR PO SCH (08:37)
[2025-05-07] MEDS: TAMSULOSIN HCL 0.4 MG CAP PO SCH (08:37)
--- NOTE | 2025-05-07 09:09 | Fluoroscopy Report ---
FL retrograde includes kub CLINICAL HISTORY: RT SIDE STENT COMPARISON STUDY: None FLUOROSCOPY TIME: 8 seconds FLUOROSCOPY IMAGES: 2 EXPOSURE DOSE: 2.5 mGy FINDINGS: Fluoroscopy was provided for urologic procedure. IMPRESSION: Intraoperative fluoroscopy. ACT 112: Negative or not required by law. Electronically signed by: Chintan Mccormick M.D. 05/07/2025 9:08 AM
[2025-05-07] MEDS: SODIUM ZIRCONIUM CYCLOSILICATE 10 GM PACKET PO STA (09:53)
--- NOTE | 2025-05-07 10:23 | Discharge Summary ---
Discharge Summary Date of Service May 07, 2025 Principal Dx & Hospital Course #1 = Principal Diagnosis (1) Right flank pain: (2) Renal colic: (3) Ureterolithiasis: Plan R. flank pain, Renal colic, R. ureterolithiasis Chata Matthew is a 54 y/o F with a past medical history of hypertension, nephrolithiasis, history of cholecystectomy, and lumbar pain with occasional radiation to lower extremities with history of lumbar laminectomy initially presenting on Tuesday 05/01 with R. flank pain controlled with pain/nausea medications and IV fluids with subsequent ED d/c and then presenting again on Sunday 05/06 due to worsening 10/[address] AP (05/01): 5mm right upper ureter stone with mild hydronephrosis Urology consulted - s/p stent placement with Dr. Renee 05/06. Outpatient follow up for removal. scheduled flomax, prn oxybutyin, prn pyrdium Hyperkalemia K 5.2 day of discharge, lokelma given. hold lisinopril. Repeat BMP with PCP. Chronic pain: Continue Duloxetine/Gabapentin SVT: Continue Metoprolol Dispo: discharge to home today Notes For Next Care Provider lisinopril held with hyperkalemia, recommend recheck in the next few days Admission HPI Per Admitting Provider Chata Matthew is a 54 y/o F with a past medical history of hypertension, nephrolithiasis, history of cholecystectomy, and lumbar pain with occasional radiation to lower extremities with history of lumbar laminectomy. Patient was seen 5 days prior, on Wednesday, in ED with R. flank pain and R. ureterolithiasis. At the time a 5mm stone was seen and patient's pain and nausea were controlled with medications prior to ED discharge. Patient was then seen in clinic by her u rologist, Dr. Lee on and options for stone removal were discussed, and an appointment was set up for May 18 for stent placement. Today, R. flank pain was severe reported as a 10/10 and patient returned to the ED and was given pain medication and anti-emetics for nausea/vomiting control with resolution of nausea and reduction of pain to a 6/10. Patient reports a similar history of a 5mm UJP stone approximately 6 months ago in September that failed treatment with stent placement and required basket retrieval for stone removal. Patient reports a history of a chronic 8mm stone also present in the L. kidney that has been stable, monitored by urology, and without associated pain. Patient also reports a family history of kidney stones, and that although this issue began primarily in September 2024 for her, her father has also had a history of kidney stones and urology interventions/follow-up. Patient denies fevers, chills, chest pain, palpitations, SOB, cough, wheeze, dysuria/burning/hematuria. Patient is amenable to urology intervention today and potential admission overnight for her R. ureterolithiasis. ED course: CT AP (05/01): [id number] small L. adrenal gland nodular lesion, 5mm right upper ureter stone with mild hydronephrosis KUB: Renal calculi not distinguished on imaging Pain control: Toradol 15mg Q6H, Morphine 4mg Q4H, fentanyl x1 150 mcg 1x NSS 1L bolus Discharge Exam General: NAD, VS as above Resp: normal respiratory effort, lungs clear to auscultation CV: RRR, no murmur, Abd: normal bowel sounds, soft, mild right sided tenderness Extremities: Moves all extremities, no edema Neuro: A&O x3, Skin: intact, no lesions noted Discharge Plan Discharge Items Patient Disposition: Home - Self-Care Reason For Visit: R. NEPHROLITHIASIS Discharge Diagnosis: Right sided kidney stone Condition on Discharge: Good Activity: Resume your previous activity Bathing: No limitations Driving/Machine Use: No limitations Non-emergency contact: Primary Care Provider and Urologist Call non-emergency contact if: you have any medication questions, your pain is not controlled and your temperature is above 101 Follow-up/Referrals: Roselia Ballesteros MD [Primary Care Provider] - 05/16/25 11:00 am (follow up within on week, call for blood work today or tomorrow 05/08 f/u at [facility] location with Wilmer Scales) Yemi Renee MD [Physician] - (f/u for stone treatment ) Diet: Regular Addtl Attending Provider Instructions: Chata, You were hospitalized after having flank pain found to be from kidney stones. You were seen by urology and taken to the OR to have a stent placed on 05/[address] Renee. You will need to follow up with urology for stent removal and stone treatment. Medication Changes/Recommendations: * Continue flomax daily while stent in place - this is to help with easier passage of urine * Pyridium as needed for pain with urination - this can cause your urine/feces to be discolored/orange * oxybutyin - as needed for blader spasm * Pain control - tylenol and ibuprofen - follow instructions on the bottle It is normal to still have discomfort in the flank area while the stent is in place, this pain may be worse with movement. Blood tinged urine can also be common. If you are having persistent dark bloody urine or thick bloody urine for >8 hours please contact your urologist. It is important that you are staying hydrated while the stent is in place. The urology office should be contacting you to schedule and appointment. If you do not hear from them by please contact them at [phone] Please contact the urologist if you have any uncontrolled pain, fevers > 100F, or inability to urinate. Your potassium was slightly elevated on the day of discharge at 5.2. This will need to be followed up on. You were given lokelma to try to bring your potassium level down. Please call your PCP today or tomorrow so they can order repeat labs to recheck it. Do not take your lisinopril until your potassium level returns to normal. Please return to the ER with chest pain or shortness of breath. Pending Studies at Discharge: No Stand-Alone Forms: [facility] Medications and DC Order Prescriptions: New oxybutynin chloride 5 mg tablet 5 mg PO TID PRN (Reason: bladder spasms) Qty: 14 0RF phenazopyridine [Pyridium] 100 mg tablet 100 mg PO Q8H PRN (Reason: pain) Qty: 6 0RF Rx Instructions: pain with urination Continued metoprolol succinate 200 mg tablet extended release 24 hr 200 mg PO QAM cyclobenzaprine 10 mg tablet 10 mg PO TID PRN (Reason: muscle spasms) acetaminophen [Tylenol Extra Strength] 500 mg tablet 500 mg PO Q6H PRN (Reason: Pain) Rx Instructions: Unable to verify OTC meds at this date/time. But this is listed as a component of Percocet on allergy list. ibuprofen 800 mg tablet 800 mg PO Q8H PRN (Reason: Pain) venlafaxine [Effexor XR] 150 mg capsule,extended release 24hr 150 mg PO QAM duloxetine [Cymbalta] 60 mg capsule,delayed release(DR/EC) 60 mg PO HS Qty: 90 0RF diazepam 5 mg tablet 5 mg PO UD PRN (Reason: muscle spasm) Qty: 3 0RF Rx Instructions: Take 1 (5 mg) tablet the night before injection, 1 tablet (5 mg) 2 hours before injection, and 1 (5 mg) tablet 30 minutes before injection as needed for anxiety (DME) blood-glucose meter [Be HereTouch Ultra2 Meter] Misc See Rx Instructions .ROUTE .MEDSUPPLY Qty: 1 Rx Instructions: As directed (DME) lancets [OneTouch Delica Plus Lancet] 33 gauge misc See Rx Instructions .ROUTE .MEDSUPPLY Qty: 100 Rx Instructions: As directed (DME) OneTouch Ultra Test Strip See Rx Instructions .ROUTE .MEDSUPPLY Qty: 10 Rx Instructions: As directed gabapentin 600 mg Tablet 600 mg PO TID ondansetron 4 mg tablet,disintegrating 4 mg PO Q8H PRN (Reason: nausea and vomiting) Qty: 20 0RF Held lisinopril 10 mg tablet 5 mg PO DAILY Hold Instructions: Provider's Order - until potassium is better No Action tamsulosin [Flomax] 0.4 mg capsule 0.4 mg PO QAM Discharge Orders: Discharge Order (Routine); Ordered 05/07/25 Ordered By: Shirley Richards/Other Patient Handouts: Having a Ureteral Stent Admission Data Admit Date/Time: 05/06/25 10:53 Attending Provider: Kade Lyoa Admit Provider: Justyn Alfaro Primary Care Provider: Roselia Ballesteros Other Providers: Alfonso Brown Other Interventions: Discharge Summary Assessment (RN) Last Done: 05/07/25 10:34 Hospital Stay Data Consultations 05/06/25 09:51 ED Decision to Admit Stat Procedures Performed Operation Date: 05/06/25 14:30 Actual Procedures p Cystoscopy; Retrograde Pyelogram; Ureteral Stent Insertion - Right (Not Applicable) - Yemi Renee MD Diagnostic Imagining Performed Retrograde Pyelogram 05/06/25 00:00 FL retrograde includes kub CLINICAL HISTORY: RT SIDE STENT COMPARISON STUDY: None FLUOROSCOPY TIME: 8 seconds FLUOROSCOPY IMAGES: 2 EXPOSURE DOSE: 2.5 mGy FINDINGS: Fluoroscopy was provided for urologic procedure. IMPRESSION: Intraoperative fluoroscopy. ACT 112: Negative or not required by law. Electronically signed by: Chintan Mccormick M.D. 05/07/2025 9:08 AM KUB X-Ray 05/06/25 08:35 2 views of the abdomen were obtained Findings: The bowel gas pattern appears unremarkable. No renal or ureteral calculi are seen. Surgical clips are seen suggestive of prior cholecystectomy. There is a lumbar fusion. There is lumbar scoliosis and degenerative disc disease Impression: Normal bowel gas pattern Electronically signed by Nahid Hernandez 05-06-2025 09:18 AM Pending Results Patient Have Any Pending Studies at Discharge: No Discharge Instructions Given to Patient (Per Discharging Provider) Chata, You were hospitalized after having flank pain found to be from kidney stones. You were seen by urology and taken to the OR to have a stent placed on 05/[address] Renee. You will need to follow up with urology for stent removal and stone treatment. Medication Changes/Recommendations: * Continue flomax daily while stent in place - this is to help with easier passage of urine * Pyridium as needed for pain with urination - this can cause your urine/feces to be discolored/orange * oxybutyin - as needed for blader spasm * Pain control - tylenol and ibuprofen - follow instructions on the bottle It is normal to still have discomfort in the flank area while the stent is in place, this pain may be worse with movement. Blood tinged urine can also be common. If you are having persistent dark bloody urine or thick bloody urine for >8 hours please contact your urologist. It is important that you are staying hydrated while the stent is in place. The urology office should be contacting you to schedule and appointment. If you do not hear from them by please contact them at [phone] Please contact the urologist if you have any uncontrolled pain, fevers > 100F, or inability to urinate. Your potassium was slightly elevated on the day of discharge at 5.2. This will need to be followed up on. You were given lokelma to try to bring your potassium level down. Please call your PCP today or tomorrow so they can order repeat labs to recheck it. Do not take your lisinopril until your potassium level returns to normal. Please return to the ER with chest pain or shortness of breath. Supervising Physician Co-Signing Physician Notes Attending Attestation & Discharge Note: Chart reviewed, discharge care plan d/w BAO Baker. I agree w/ the benítez components of her discharge documentation. Of note - I did not perform a bedside visit or exam on day of discharge. 54yo female with recently diagnosed 5mm right-sided kidney stone (05/01/25 CT a/p showed the 5mm stone) who presented with severe right flank pain. Seen by [facility], and on 05/06 underwent right-sided stent placement by Dr Yemi Renee. On 05/07 pt's creatinine was stable at 0.7, and vitals were stable/satisfactory. She will f/u with [facility] in the next 1-2 weeks for stone/stent management. Kade Loya MD Total Time Total Time Spent Total Time Spent (In Minutes): Time spent day of discharge 34 minutes including direct patient care, medication reconciliation, documentation, review of labs and images, and coordination of care. Coding Level of Care Code 46001 INP/OBS DISCH >30 MIN Diagnoses Right flank pain R10.9 Renal colic N23 Ureterolithiasis N20.1
--- NOTE | 2025-05-07 11:40 | Urology Progress Note ---
Date of Service May 07, 2025 Assessment & Plan (1) Ureterolithiasis: (2) Right flank pain: Plan 54-year-old female with a history of a right proximal obstructing ureteral calculus who was seen outpatient with urology and was scheduled for right stone treatment but developed severe nausea and right flank pain and presented back to the hospital. She underwent cystoscopy and right ureteral stent placement on 05/[address] Renee. Reports she is feeling better overall since stent placement. Remains afebrile and hemodynamically stable. Labs today show no leukocytosis and normal renal function. Urine culture 05/01 was negative for infection. Okay for discharge from perspective. Continue tamsulosin, Pyridium, oxybutynin for stent management. Plan for outpatient follow-up with urology as scheduled. Urology will sign off. Please call with any further questions or concerns. Admission and Anticipated Discharge Date Admission Date: May 06, 2025 Subjective Pt seen at bedside today. Awake and resting in bed on arrival. No acute distress. Overall feeling well. Pain has improved. Reports some bladder spasms. Denies f/c/n/v. Voiding without issue. Review of Systems Constitutional: as per Subjective / HPI Genitourinary: as per Subjective / HPI Physical Exam Constitutional: no acute distress Respiratory: no respiratory distress and no labored breathing Neurologic: awake Psychiatric: A+Ox3, euthymic affect Results & Data Vital Signs (Past 12 Hours) Vital Signs Temp Pulse Pulse Resp BP Pulse Ox O2 Del Method 05/07/25 08:03 36.5 C 90 16 142/70 H 97 Room Air 05/07/25 03:23 36.3 C L 84 16 104/65 96 Room Air PG Care Time/CCT Total # of Minutes Spent Total Time Spent with Patient: Total time spent is greater than 50% in coordination of care (as documented) at patient's floor/unit and/or counseling patient: Coding Level of Care Code 97712 SUB INP/OBS CARE 2/35MIN Diagnoses Ureterolithiasis N20.1 Right flank pain R10.9
== END 2025-05-07 11:08 | disposition home or self-care (01) ==
LOC: ED 08:27 → 3N 08:27 → SUATTDRO 10:53 → 3N 12:23